=== PATIENT | male | born 1955 | race Caucasian/White ===

== ENCOUNTER → 2017-10-23 | Outpatient (CLI) | payer BC ==
--- NOTE | 2017-10-25 10:07 | MR ---
EXAMINATION TYPE: MR knee RT wo con DATE OF EXAM: 10/23/2017 COMPARISON: Outside right knee MRI report December 11, 2014 HISTORY: Right knee pain per order. Inner knee pain for 3 years with history of prior surgery per pat ient. TECHNIQUE: Multiplanar, multisequence images of the knee is performed without IV contrast. FINDINGS: MEDIAL MENISCUS: Anterior horn remains intact without tear. There is redemonstration of triangular sh aped increased signal posterior horn of medial meniscus does not extend to articular surface not sign ificantly changed from prior. Slight medial extrusion of medial meniscus is now present on coronal im ages LATERAL MENISCUS: Anterior and posterior horns are intact without tear. CRUCIATE LIGAMENTS: The posterior cruciate ligaments is intact and unremarkable. Anterior cruciate li gament shows thickening with wavy course and intermediate signal, this is more prominent versus prior . Some fibers remain attached at both proximal and distal attachments. COLLATERAL LIGAMENTS: The medial collateral ligament and lateral collateral ligament complex are inta ct and unremarkable. EXTENSOR MECHANISM: Visualized quadriceps and patellar tendons are intact. Ossific fragmentation from anterior tibial tuberosity could reflect product of old [place]-Schlatter type injury is unchanged fr om prior deep to the distal patellar tendon. EFFUSION: There is more prominent moderate to large suprapatellar joint effusion. POPLITEAL CYST: No popliteal/castro cyst. TRICOMPARTMENT SPACES: There is persistent mild to moderate tricompartment joint space loss most prom inent patellofemoral compartment with mild tricompartment joint space spurring. CARTILAGE: Some early fissuring or chondromalacia patella is seen along posterior patellar pole best on sagittal image 18, no full-thickness cartilaginous loss is present. Some thinning of articular car tilage medial tibiofemoral compartment is noted most prominent posteriorly. BONE MARROW SIGNAL: No focal abnormal marrow signal is appreciated. OTHER: Small ganglion cyst anterior to anterior horn right lateral meniscus is slightly larger. IMPRESSION: 1. 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 2. Moderate to large size suprapatellar joint effusion slightly more prominent versus prior. 3. Background of mild to moderate diffuse osteoarthritic changes redemonstrated without significant i nterval progression.
== END ==
LOC: RADMRIMAIN 07:58
PROVIDERS: ATTEND Orthopaedic Surgery
DX: M17.11 Unilateral primary osteoarthritis, right knee (principal)

== ENCOUNTER → 2018-03-17 | Outpatient (CLI) | payer BC ==
--- NOTE | 2018-03-17 07:51 | MR ---
EXAMINATION TYPE: MR knee LT wo con DATE OF EXAM: 03/17/2018 7:41 AM COMPARISON: NONE HISTORY: LEFT KNEE PAIN TECHNIQUE: Multiplanar, multiecho imaging of the left knee is performed without IV contrast. FINDINGS: There is a small joint effusion. There is grade III to IV chondromalacia involving the medial patellar facet. There is grade I to II c hondromalacia involving the weightbearing surface of the medial femoral condyle. There is pseudocystic changes at the origin of the lateral collateral ligament and also some pseudocy stic change or a small enchondroma involving the medial metaphysis of the distal femur. Both menisci appear intact. There is myxoid change within the anterior cruciate ligament. The posterior cruciate ligament appears normal. Both the medial and lateral collateral ligament complexes appear intact. No macro fracture is seen. T here is osseous edema involving the medial aspect of the medial femoral condyle. IMPRESSION: 1. CHONDROMALACIA DESCRIBED. 2. NO EVIDENCE OF A MENISCAL TEAR. 3. SMALL JOINT EFFUSION. 4. BENIGN-APPEARING LESION, MEDIAL FEMORAL CONDYLE. 5. PSEUDOCYSTIC CHANGE AT THE ORIGIN OF THE MEDIAL COLLATERAL LIGAMENT COMPLEX.
== END | disposition home or self-care (01) ==
LOC: RADMRIMAIN 07:04
PROVIDERS: ATTEND Orthopaedic Surgery
DX: M22.42 Chondromalacia patellae, left knee (principal); M25.462 Effusion, left knee; M25.862 Other specified joint disorders, left knee; R93.7 Abnormal findings on diagnostic imaging of other parts of musculoskeletal system

== ENCOUNTER → 2018-04-17 | Outpatient (CLI) | payer BC ==
[2018-04-17 11:32] LABS: Basophils % (A) 1 %; Eosinophils # (A) 0.1 k/uL (0-0.7); Eosinophils % (A) 2 %; HCT 45.3 % (39.0-53.0); HGB 14.5 gm/dL (13.0-17.5); Lymphocytes # (A) 1.5 k/uL (1.0-4.8); Lymphocytes % (A) 21 %; MCH 28.6 pg (25.0-35.0); MCV 89.6 fL (80.0-100.0); Mean Platelet Volume 6.5; Monocytes # (A) 0.4 k/uL (0-1.0); Monocytes % (A) 5 %; Neutrophils # (A) 4.9 k/uL (1.3-7.7); Neutrophils % (A) 69 %; Platelet Count 331 k/uL (150-450); RBC 5.06 m/uL (4.30-5.90); RDW 14.5 % (11.5-15.5); WBC 7.2 k/uL (3.8-10.6)
[2018-04-17 11:45] LABS: Potassium 4.8 mmol/L (3.5-5.1)
== END | disposition home or self-care (01) ==
LOC: LABPAT 10:56
PROVIDERS: ATTEND Orthopaedic Surgery
DX: Z01.818 Encounter for other preprocedural examination (principal); Z01.812 Encounter for preprocedural laboratory examination; M23.92 Unspecified internal derangement of left knee
CPT/HCPCS: 36415; 80051; 85025; 93005

== ENCOUNTER 2018-04-26 07:12 | Day surgery (SDC) | payer BC ==
[2018-04-17 15:46] VITALS: BMI 32.3
--- NOTE | 2018-04-25 20:37 | HP ---
HISTORY AND PHYSICAL REASON FOR ADMISSION: Surgery scheduled for 04/26/2018 HISTORY OF PRESENT ILLNESS: Saturnino Farris is a 62-year-old patient seen with progressive left knee pain. Treatment options were discussed with him. He elected to proceed with arthroscopy. Consent regarding procedure was obtained. PAST MEDICAL HISTORY: Azc-yoexbft-marqworca diabetes. PAST SURGICAL HISTORY: Right knee arthroscopy. MEDICATIONS: 1. . 2. Lyrica. 3. Ibuprofen. 4. Tramadol. ALLERGIES: None reported. SOCIAL HISTORY: Patient denies tobacco use. PHYSICAL EXAMINATION: Evaluation of the left knee range of motion is -3 to 120 degrees. There is a moderate effusion present. Tenderness along the medial joint line. Positive medial Beltran's. Ligaments are stable. Hip rotation without pain. Distal neurovascular exam intact. RADIOGRAPHS: Left knee radiographs revealed mild osteoarthritis. Left knee MRI revealed chondromalacia and intraarticular joint effusion. IMPRESSION: 1. Internal derangement, left knee with meniscal tear versus osteochondral tear. 2. Pit-ggrwadg-khzbzngol diabetes. PLAN: Left knee arthroscopy with partial meniscectomy versus chondroplasty and debridement. Surgery scheduled for 04/26/2018. MMODL / IJN: [id number] /
[~2018-04-26 07:12] MED LIST: LACTATED RINGERS 1,000 ML IV SCH; ONDANSETRON 4 MG/2 ML VIAL IVP PRN; ceFAZolin IN SWFI 2 GM/20 ML SYRINGE IVP ONE
[2018-04-26] MEDS ORDERED: LIDOCAINE 1% 20 ML VIAL (10MG/ML) FOR IV START INTRADERMA ONE (07:38)
[2018-04-26 08:01] LABS: Glucose,Whole Blood 143 mg/dL (75-99)
[2018-04-26 08:03] VITALS: RESP 16
[2018-04-26] MEDS ORDERED: ePHEDrine SULFATE/0.9% NACL/PF 50 MG/5 ML SYRINGE IV ONE (08:51)
[2018-04-26] MEDS ORDERED: fentaNYL (PF) 50 MCG/ML 2 ML AMP ONE (08:51)
[2018-04-26] MEDS ORDERED: MIDAZOLAM 2 MG/2 ML VIAL ONE (08:51)
[2018-04-26] MEDS ORDERED: KETOROLAC 30 MG/ML 1 ML VIAL ONE (08:51)
[2018-04-26] MEDS ORDERED: SUCCINYLCHOLINE CHLORIDE 100 MG/5 ML SYR IV ONE (08:51)
[2018-04-26] MEDS ORDERED: HYDROmorphone (PF) 1 MG/ML ONE (08:51)
[2018-04-26] MEDS ORDERED: LACTATED RINGERS 1,000 ML IV ONE (08:51)
[2018-04-26] MEDS ORDERED: LIDOCAINE 1% INJ 10MG/ML (20 ML MDV) ONE (08:51)
[2018-04-26] MEDS ORDERED: PROPOFOL 10 MG/ML 20 ML VIAL IV ONE (08:51)
[2018-04-26] MEDS ORDERED: BUPIVACAINE (PF) 0.25% 30 ML VIAL INTRAARTIC ONE (09:02)
--- NOTE | 2018-04-26 09:58 | P.OP ---
Date of Procedure: 04/26/18 Preoperative Diagnosis: Internal derangement left knee Postoperative Diagnosis: 1. Tear medial and lateral meniscus left knee 2. Grade 2 chondromalacia medial femoral condyle left knee 3. Grade 2 chondromalacia patella left knee 4. Reactive synovitis medial and suprapatellar compartments left knee Procedure(s) Performed: 1. Arthroscopic partial medial and lateral meniscectomy left knee 2. Arthroscopic chondroplasty medial femoral condyle left knee 3. Arthroscopic chondroplasty patella left knee 4. Arthroscopic partial synovectomy medial and suprapatellar compartments left knee Anesthesia: AKILAHA, local Surgeon: Rosendo Alford Estimated Blood Loss (ml): 8 Pathology: none sent Condition: stable Disposition: PACU Indications for Procedure: 62-year-old patient seen with progressive left knee pain. After treatment options were discussed, he elected to proceed with arthroscopy. Operative Findings: see description of procedure Description of Procedure: Patient was taken to the operative suite. Patient underwent a general anesthetic by the department of anesthesia. Patient was given preoperative antibiotics. The left lower extremity was placed in a well-padded arthroscopic leg lopez. The left leg was prepped and draped in the normal sterile orthopedic fashion. A lateral parapatellar and suprapatellar incision was made. Trochars were inserted. Arthroscopy was initiated. Suprapatellar pouch revealed diffuse thick reactive synovitis. The patellofemoral joint appeared to articulate congruently. There was grade 2 chondromalacia of the patella with osteochondral tears present. The scope was guided into the medial gutter. No loose bodies or plica were identified. The scope was then guided into the medial compartment. A medial parapatellar incision was made. Trocar inserted followed by probe. It was a complex tear involving the posterior horn of the medial meniscus. There were grade 2 chondromalacia changes of the medial femoral condyle with osteochondral tears present. There was reactive synovitis anteriorly. I performed a partial medial meniscectomy down to stable tissue. I performed a chondroplasty of the medial femoral condyle down to stable tissue followed by partial synovectomy. The residual meniscus and osteochondral surfaces were stable. There was good decompression of the synovitis. Scope and probe were then guided into the intercondylar notch. Cruciates were identified, probed and found to be stable. The scope and probe were then guided into lateral compartment. There was a radial tear mid body lateral meniscus. There was no chondromalacia present. There was no significant reactive synovitis present. I performed a partial lateral meniscectomy down to stable tissue. The residual meniscus was probed and found to be stable. The scope was in guided back into the suprapatellar compartment. I introduced a motorized shaver into the super compartment. I debrided some piecemeal fragments of meniscus I encountered. I performed a chondroplasty of the patella down to stable tissue. I performed a partial synovectomy. The shaver was removed. I took one more look around the entire knee, no residual debris. Instruments were now removed from the joint. The joint was infiltrated with .25 % Marcaine. Steri-Strips were applied to the portal sites. Sterile dressings were applied. The patient was placed into a TOSHIA hose. No tourniquet was utilized. The patient was awakened, transferred to a bed and taken to recovery stable satisfactory condition.
[2018-04-26] MEDS: HYDROmorphone 0.5 MG/0.5 ML SYRINGE IVP PRN ×2 (10:05→10:17)
[2018-04-26 10:10] VITALS: TEMP 98.6
[2018-04-26 10:32] LABS: Glucose,Whole Blood 128 mg/dL (75-99)
[2018-04-26 11:41] VITALS: BP 142/85; PULSE 81
== END 2018-04-26 12:17 | disposition home or self-care (01) ==
LOC: OR 07:12
PROVIDERS: ATTEND Orthopaedic Surgery
DX: S83.242A Other tear of medial meniscus, current injury, left knee, initial encounter (principal); S83.282A Other tear of lateral meniscus, current injury, left knee, initial encounter; X58.XXXA Exposure to other specified factors, initial encounter; M22.42 Chondromalacia patellae, left knee; M65.862 Other synovitis and tenosynovitis, left lower leg; E11.9 Type 2 diabetes mellitus without complications; Z79.84 Long term (current) use of oral hypoglycemic drugs; G47.33 Obstructive sleep apnea (adult) (pediatric); Z87.891 Personal history of nicotine dependence; K52.9 Noninfective gastroenteritis and colitis, unspecified; Z79.1 Long term (current) use of non-steroidal anti-inflammatories (NSAID); Z79.899 Other long term (current) drug therapy; Z79.891 Long term (current) use of opiate analgesic

== ENCOUNTER 2022-03-02 18:44 | Inpatient (IN) | payer BC ==
[2022-03-02 20:03] LABS: Glucose,Whole Blood 189 mg/dL (75-99)
--- NOTE | 2022-03-02 20:22 | ED ---
General Adult HPI - General Chief complaint: Nausea/Vomiting/Diarrhea Stated complaint: SOB/NVD Time Seen by Provider: 03/02/22 20:18 Source: patient, family Mode of arrival: ambulatory Limitations: no limitations - History of Present Illness Initial comments: Patient presents to the ED with his for evaluation. Patient states that he has had nausea and vomiting for the past 24 hours or so. He states that he has been unable to keep anything down, including his medications. He states that he is a diabetic, and he has been checking his blood glucose levels today. He states that he had a level of 190 earlier today. Patient also admits to feeling generally weak, having lower extremity muscle "cramps", and having a headache. Patient denies trauma or injury, sudden onset of headache, LOC, focal numbness/weakness/neuro deficit, visual changes, speech difficulty, neck pain or stiffness, fever, cough or cold symptoms, dyspnea, chest pain, palpitations, dizziness, abdominal pain, diarrhea or constipation, bloody or melanotic stool, hematemesis, dysuria/hematuria/urinary frequency/urinary symptoms, or any other symptoms or complaints. Patient denies known sick contact or recent travel abroad. Patient denies any unusual ingestions that he feels may have caused his symptoms. Patient states that he is fully vaccinated for Covid. - Related Data Home Medications Medication Instructions Recorded Confirmed Empagliflozin/Linagliptin 1 tab PO DAILY 04/17/18 03/02/22 [Glyxambi 25 mg-5 mg Tablet] Mesalamine [Lialda] 4.8 gm PO DAILY 04/17/18 03/02/22 Multivitamins, Thera [Multivitamin 1 tab PO DAILY 03/02/22 03/02/22 (formulary)] Pioglitazone [Actos] 45 mg PO DAILY 03/02/22 03/02/22 Semaglutide [Rybelsus] 7 mg PO DAILY 03/02/22 03/02/22 clonazePAM [KlonoPIN] 0.5 mg PO HS 03/02/22 03/02/22 Allergies Allergy/AdvReac Type Severity Reaction Status Date / Time No Known Allergies Allergy Verified 03/02/22 19:37 Review of Systems ROS Statement: Those systems with pertinent positive or pertinent negative responses have been documented in the HPI. ROS Other: All systems not noted in ROS Statement are negative. Past Medical History Past Medical History: Diabetes Mellitus Additional Past Medical History / Comment(s): ulcerative colitis History of Any Multi-Drug Resistant Organisms: None Reported Past Surgical History: No Surgical Hx Reported Additional Past Surgical History / Comment(s): knees Past Psychological History: No Psychological Hx Reported Smoking Status: Never smoker Past Alcohol Use History: None Reported, Occasional Past Drug Use History: Marijuana General Exam Limitations: no limitations General appearance: alert, in no apparent distress Head exam: Present: atraumatic, normocephalic Eye exam: Present: normal appearance, PERRL, EOMI ENT exam: Present: mucous membranes dry Neck exam: Present: other (No nuchal rigidity; trachea is in midline). Absent: tenderness, meningismus Respiratory exam: Present: normal lung sounds bilaterally. Absent: respiratory distress, wheezes, rales, rhonchi, stridor Cardiovascular Exam: Present: normal rhythm, tachycardia, normal heart sounds, other (Normal radial pulses bilaterally) GI/Abdominal exam: Present: soft, normal bowel sounds. Absent: distended, tenderness, guarding Extremities exam: Absent: pedal edema Neurological exam: Present: alert, oriented X3, CN II-XII intact. Absent: motor sensory deficit Psychiatric exam: Present: normal affect, normal mood Skin exam: Present: warm, dry, intact, normal color Course Vital Signs 03/02/22 19:30 Temperature 99.1 F Pulse Rate 103 H Respiratory 18 Rate Blood Pressure 142/74 O2 Sat by Pulse 98 Oximetry - Reevaluation(s) Reevaluation #1: 03/02/22 22:45 Case, H&P, test results thus far and ED management thus far were discussed with Dr. Meng (project management advisor). I explained to him my concern for euglycemic DKA, but he states that this would be very unusual, and he thinks that it is very unlikely given that the patient is not an insulin-dependent diabetic. He recommends ordering toxicological labs (salicylates, drug screen, toxic alcohols) and administrating sodium bicarbonate. He states that he does not feel that the patient needs to be admitted to the ICU, and he recommends medical floor admission to the medical service. He has no further recommendations at t his time. 03/02/22 22:56 Case, H&P, test results thus far, ED management thus far and my discussion with Dr. Meng as above were discussed with Dr. Abrams. He too is concerned that the patient's symptoms are from euglycemic DKA particularly given that the patient is on a SGLT2 inhibitor for management of his hyperglycemia. He recommends starting the patient on an insulin IV drip with a concomitant D5 IV drip. He accepts hospital floor admission. He does not recommend administration of sodium bicarbonate at this time. He has no further recommendations at this time. 03/02/22 23:30 Patient states that his nausea has improved with ED treatment, and he is now feeling better. Patient remains alert and breathing comfortably. Patient and are aware the patient's test results and my discussions as above. They both agree with hospital admission at this time. Medical Decision Making - Medical Decision Making Patient is a type II diabetic being treated with a SGLT2 inhibitor. Patient has an anion gap metabolic acidosis and is acetone positive. Patient's lactate and salicylate levels are within normal limits. Patient's toxic alcohol levels are still pending at this time. Patient denies any toxicological ingestion/overdos e. Given the above, I suspect that the patient likely has euglycemic DKA, and treatment has been initiated with a regular insulin IV drip and a D5 half-normal saline IV drip. Case was discussed with Dr. Abrams and he agrees with this plan. Dr. Abrams has accepted hospital admission. - Lab Data Result diagrams: 03/02/22 21:18 03/02/22 20:11 Lab Results 03/02/22 03/02/22 03/02/22 Range/Units 20:01 20:11 20:11 WBC 10.6 (3.8-10.6) k/uL RBC 5.03 (4.30-5.90) m/uL Hgb 14.8 (13.0-17.5) gm/dL Hct 49.8 (39.0-53.0) % MCV 99.1 (80.0-100.0) fL MCH 29.5 (25.0-35.0) pg MCHC 29.8 L (31.0-37.0) g/dL RDW 13.7 (11.5-15.5) % Plt Count 278 (150-450) k/uL MPV 7.6 Neutrophils % 84 % Lymphocytes % 6 % Monocytes % 7 % Eosinophils % 1 % Basophils % 0 % Neutrophils # 8.9 H (1.3-7.7) k/uL Lymphocytes # 0.6 L (1.0-4.8) k/uL Monocytes # 0.8 (0-1.0) k/uL Eosinophils # 0.1 (0-0.7) k/uL Basophils # 0.0 (0-0.2) k/uL Hypochromasia Marked VBG pH (7.31-7.41) VBG pCO2 (37-51) mmHg VBG HCO3 (24-28) mmol/L Sodium 137 (137-145) mmol/L Potassium 5.6 H (3.5-5.1) mmol/L Chloride 104 (98-107) mmol/L Carbon Dioxide <5 L* (22-30) mmol/L Anion Gap mmol/L BUN 19 (9-20) mg/dL Creatinine 1.23 (0.66-1.25) mg/dL Est GFR (CKD-EPI)AfAm 72 (>60 ml/min/1.73 sqM) Est GFR (CKD-EPI)NonAf 62 (>60 ml/min/1.73 sqM) Glucose 206 H (74-99) mg/dL POC Glucose (mg/dL) 189 H (75-99) mg/dL POC Glu Table Saw Operator ID Freddy, Marcell Plasma Lactic Acid Estevan (0.7-2.0) mmol/L Calcium 9.3 (8.4-10.2) mg/dL Magnesium (1.6-2.3) mg/dL Total Bilirubin 0.7 (0.2-1.3) mg/dL AST 28 (17-59) U/L ALT 24 (4-49) U/L Alkaline Phosphatase 75 (38-126) U/L Total Protein 8.4 H (6.3-8.2) g/dL Albumin 5.0 (3.5-5.0) g/dL Lipase (23-300) U/L Salicylates mg/dL Acetaminophen ug/mL Acetone, Qual (Negative) Coronavirus (PCR) (Not Detectd) 03/02/22 03/02/22 03/02/22 Range/Units 21:18 21:18 21:18 WBC 9.6 (3.8-10.6) k/uL RBC 4.84 (4.30-5.90) m/uL Hgb 15.0 (13.0-17.5) gm/dL Hct 48.1 (39.0-53.0) % MCV 99.5 (80.0-100.0) fL MCH 31.0 (25.0-35.0) pg MCHC 31.1 (31.0-37.0) g/dL RDW 14.2 (11.5-15.5) % Plt Count 300 (150-450) k/uL MPV 7.6 Neutrophils % 84 % Lymphocytes % 7 % Monocytes % 7 % Eosinophils % 0 % Basophils % 0 % Neutrophils # 8.1 H (1.3-7.7) k/uL Lymphocytes # 0.6 L (1.0-4.8) k/uL Monocytes # 0.7 (0-1.0) k/uL Eosinophils # 0.0 (0-0.7) k/uL Basophils # 0.0 (0-0.2) k/uL Hypochromasia Marked VBG pH 7.10 L* (7.31-7.41) VBG pCO2 28 L (37-51) mmHg VBG HCO3 8 L* (24-28) mmol/L Sodium (137-145) mmol/L Potassium (3.5-5.1) mmol/L Chloride (98-107) mmol/L Carbon Dioxide (22-30) mmol/L Anion Gap mmol/L BUN (9-20) mg/dL Creatinine (0.66-1.25) mg/dL Est GFR (CKD-EPI)AfAm (>60 ml/min/1.73 sqM) Est GFR (CKD-EPI)NonAf (>60 ml/min/1.73 sqM) Glucose (74-99) mg/dL POC Glucose (mg/dL) (75-99) mg/dL POC Glu Table Saw Operator ID Plasma Lactic Acid Estev[place] (0.7-2.0) mmol/L Calcium (8.4-10.2) mg/dL Magnesium 2.4 H (1.6-2.3) mg/dL Total Bilirubin (0.2-1.3) mg/dL AST (17-59) U/L ALT (4-49) U/L Alkaline Phosphatase (38-126) U/L Total Protein (6.3-8.2) g/dL Albumin (3.5-5.0) g/dL Lipase 29 (23-300) U/L Salicylates mg/dL Acetaminophen ug/mL Acetone, Qual Positive (Negative) Coronavirus (PCR) (Not Detectd) 03/02/22 03/02/22 03/02/22 Range/Units 21:25 22:13 22:37 WBC (3.8-10.6) k/uL RBC (4.30-5.90) m/uL Hgb (13.0-17.5) gm/dL Hct (39.0-53.0) % MCV (80.0-100.0) fL MCH (25.0-35.0) pg MCHC (31.0-37.0) g/dL RDW (11.5-15.5) % Plt Count (150-450) k/uL MPV Neutrophils % % Lymphocytes % % Monocytes % % Eosinophils % % Basophils % % Neutrophils # (1.3-7.7) k/uL Lymphocytes # (1.0-4.8) k/uL Monocytes # (0-1.0) k/uL Eosinophils # (0-0.7) k/uL Basophils # (0-0.2) k/uL Hypochromasia VBG pH (7.31-7.41) VBG pCO2 (37-51) mmHg VBG HCO3 (24-28) mmol/L Sodium (137-145) mmol/L Potassium (3.5-5.1) mmol/L Chloride (98-107) mmol/L Carbon Dioxide (22-30) mmol/L Anion Gap mmol/L BUN (9-20) mg/dL Creatinine (0.66-1.25) mg/dL Est GFR (CKD-EPI)AfAm (>60 ml/min/1.73 sqM) Est GFR (CKD-EPI)NonAf (>60 ml/min/1.73 sqM) Glucose (74-99) mg/dL POC Glucose (mg/dL) 189 H (75-99) mg/dL POC Glu Table Saw Operator ID Andrew [facility] Plasma Lactic Acid Estevan 1.0 (0.7-2.0) mmol/L Calcium (8.4-10.2) mg/dL Magnesium (1.6-2.3) mg/dL Total Bilirubin (0.2-1.3) mg/dL AST (17-59) U/L ALT (4-49) U/L Alkaline Phosphatase (38-126) U/L Total Protein (6.3-8.2) g/dL Albumin (3.5-5.0) g/dL Lipase (23-300) U/L Salicylates mg/dL Acetaminophen ug/mL Acetone, Qual (Negative) Coronavirus (PCR) Not Detected (Not Detectd) 03/02/22 Range/Units 22:45 WBC (3.8-10.6) k/uL RBC (4.30-5.90) m/uL Hgb (13.0-17.5) gm/dL Hct (39.0-53.0) % MCV (80.0-100.0) fL MCH (25.0-35.0) pg MCHC (31.0-37.0) g/dL RDW (11.5-15.5) % Plt Count (150-450) k/uL MPV Neutrophils % % Lymphocytes % % Monocytes % % Eosinophils % % Basophils % % Neutrophils # (1.3-7.7) k/uL Lymphocytes # (1.0-4.8) k/uL Monocytes # (0-1.0) k/uL Eosinophils # (0-0.7) k/uL Basophils # (0-0.2) k/uL Hypochromasia VBG pH (7.31-7.41) VBG pCO2 (37-51) mmHg VBG HCO3 (24-28) mmol/L Sodium (137-145) mmol/L Potassium (3.5-5.1) mmol/L Chloride (98-107) mmol/L Carbon Dioxide (22-30) mmol/L Anion Gap mmol/L BUN (9-20) mg/dL Creatinine (0.66-1.25) mg/dL Est GFR (CKD-EPI)AfAm (>60 ml/min/1.73 sqM) Est GFR (CKD-EPI)NonAf (>60 ml/min/1.73 sqM) Glucose (74-99) mg/dL POC Glucose (mg/dL) (75-99) mg/dL POC Glu Table Saw Operator ID Plasma Lactic Acid Estevan (0.7-2.0) mmol/L Calcium (8.4-10.2) mg/dL Magnesium (1.6-2.3) mg/dL Total Bilirubin (0.2-1.3) mg/dL AST (17-59) U/L ALT (4-49) U/L Alkaline Phosphatase (38-126) U/L Total Protein (6.3-8.2) g/dL Albumin (3.5-5.0) g/dL Lipase (23-300) U/L Salicylates <1.0 mg/dL Acetaminophen <10.0 ug/mL Acetone, Qual (Negative) Coronavirus (PCR) (Not Detectd) Critical Care Time Critical Care Time: Yes Total Critical Care Time: 40 Disposition Clinical Impression: Nausea and vomiting, Metabolic acidosis, Hyperglycemia Narrative: Suspected euglycemic diabetic ketoacidosis Disposition: ADMITTED IP TO THIS [facility] Condition: Stable Is patient prescribed a controlled substance at d/c from ED?: No Time of Disposition: 23:01
[2022-03-02 20:23] LABS: Basophils % (A) 0 %; Eosinophils # (A) 0.1 k/uL (0-0.7); Eosinophils % (A) 1 %; HCT 49.8 % (39.0-53.0); HGB 14.8 gm/dL (13.0-17.5); Hypochromasia Marked; Lymphocytes # (A) 0.6 k/uL (1.0-4.8); Lymphocytes % (A) 6 %; MCH 29.5 pg (25.0-35.0); MCHC 29.8 g/dL (31.0-37.0); MCV 99.1 fL (80.0-100.0); Mean Platelet Volume 7.6; Monocytes # (A) 0.8 k/uL (0-1.0); Monocytes % (A) 7 %; Neutrophils # (A) 8.9 k/uL (1.3-7.7); Neutrophils % (A) 84 %; Platelet Count 278 k/uL (150-450); RBC 5.03 m/uL (4.30-5.90); RDW 13.7 % (11.5-15.5); WBC 10.6 k/uL (3.8-10.6)
[2022-03-02] MEDS ORDERED: SODIUM CHLORIDE 0.9% 1,000 ML IV STA (20:26)
[2022-03-02] MEDS ORDERED: MORPHINE SULFATE 4 MG/ML SYRINGE IV STA (20:26)
[2022-03-02] MEDS ORDERED: ONDANSETRON 4 MG/2 ML VIAL IVP STA (20:26)
[2022-03-02 20:36] LABS: ALT 24 U/L (4-49); AST 28 U/L (17-59); African American GFR (CKD) 72 (>60 ml/min/1.73 sqM); Alkaline Phosphatase 75 U/L (38-126); Blood Urea Nitrogen 19 mg/dL (9-20); Calcium 9.3 mg/dL (8.4-10.2); Carbon Dioxide <5 mmol/L (22-30); Chloride 104 mmol/L (98-107); Glucose 206 mg/dL (74-99); Non-African American GFR(CKD) 62 (>60 ml/min/1.73 sqM); Potassium 5.6 mmol/L (3.5-5.1); Sodium 137 mmol/L (137-145); Total Bilirubin 0.7 mg/dL (0.2-1.3); Total Protein 8.4 g/dL (6.3-8.2)
[2022-03-02 21:31] LABS: Basophils % (A) 0 %; Eosinophils % (A) 0 %; HCT 48.1 % (39.0-53.0); Hypochromasia Marked; Lymphocytes # (A) 0.6 k/uL (1.0-4.8); Lymphocytes % (A) 7 %; MCHC 31.1 g/dL (31.0-37.0); MCV 99.5 fL (80.0-100.0); Mean Platelet Volume 7.6; Monocytes # (A) 0.7 k/uL (0-1.0); Monocytes % (A) 7 %; Neutrophils # (A) 8.1 k/uL (1.3-7.7); Neutrophils % (A) 84 %; Platelet Count 300 k/uL (150-450); RBC 4.84 m/uL (4.30-5.90); RDW 14.2 % (11.5-15.5); WBC 9.6 k/uL (3.8-10.6)
[2022-03-02 21:34] LABS: VBG PH 7.1 (7.31-7.41)
[2022-03-02 21:42] LABS: Lipase 29 U/L (23-300)
[2022-03-02 21:47] LABS: Magnesium 2.4 mg/dL (1.6-2.3)
[2022-03-02] MEDS ORDERED: SODIUM CHLORIDE 0.9% 1,000 ML IV ONE (22:31)
[2022-03-02 22:40] LABS: Glucose,Whole Blood 189 mg/dL (75-99)
[2022-03-02 23:03] LABS: Acetaminophen <10.0 ug/mL; Salicylate <1.0 mg/dL
[2022-03-02] MEDS ORDERED: DEXTROSE 5%-0.45% NACL 1,000 ML IV ONE (23:03)
[2022-03-02 23:22] LABS: Appearance,Urine Clear (Clear); Bilirubin,Urine Negative (Negative); Blood,Urine Trace (Negative); Color,Urine Light Yellow; Glucose,Urine (UA) 4+ (Negative); Leukocyte Esterase,Urine Negative (Negative); Mucus,Urine Rare /hpf; Nitrite,Urine Negative (Negative); Protein,Urine 1+ (Negative); RBC,Urine <1 /hpf (0-5); Specific Gravity,Urine 1.023 (1.001-1.035); Urobilinogen,Urine <2.0 mg/dL (<2.0); WBC,Urine 1 /hpf (0-5)
[2022-03-02 23:28] LABS: Ketones,Urine 4+ (Negative)
[2022-03-02 23:49] LABS: Amphetamine Screen,Urine Not Detected (NotDetected); Barbiturate Screen,Urine Not Detected (NotDetected); Benzodiazepines Screen,Urine Not Detected (NotDetected); Cocaine Screen,Urine Not Detected (NotDetected); Methadone Screen, Urine Not Detected (NotDetected); Opiate Screen,Urine Detected (NotDetected); Oxycodone Screen, Urine Not Detected (NotDetected); Phencyclidine Screen,Urine Not Detected (NotDetected); Tricyclic Antidepressant,Urine Not Detected (NotDetected); Urn Cannabinoid Scrn Not Detected (NotDetected)
[2022-03-03 00:50] LABS: Phosphorus 4.2 mg/dL (2.5-4.5); Potassium 4.9 mmol/L (3.5-5.1)
[2022-03-03] MEDS: INSULIN REGULAR 100 UNIT in SODIUM CHLORIDE 0.9% 100 ML IV SCH ×2 (01:35→15:36)
[2022-03-03] MEDS: clonazePAM 0.5 MG TAB PO SCH ×2 (01:36→21:43)
[2022-03-03 01:44] LABS: Glucose,Whole Blood 183 mg/dL (75-99)
[2022-03-03 03:20] LABS: Glucose,Whole Blood 113 mg/dL (75-99)
--- NOTE | 2022-03-03 03:49 | P.HPIM ---
History of Present Illness H&P Date: 03/02/22 Chief Complaint: generalized weakness, nausea vomiting 66 year old male with T2DM patient presenting with 1 days history of progressive weakness, nausea and vomtiing, increase urination , no diarrhea, no infection like symptoms, no fever, no chills, no dysuria or hematuria , no chest pain , no trouble breathing, no cough. however, his does report that he was breathing in a strange way and was becoming lethargic. he recently lost his mother yesterday, and has been exceptionally stressed. he is otherwise compliant with his medications blood work in the ED , showed severe acidosis and large anion gap, acetones were positive, toxicology profile negative, patient suspected to have euglycemic DKA as he is on SGLT2 inhibitor which is recognized to cause euglycemic DKA in T2DM. patient was updated and started on DKA pathway, with insulin drip and IV D5+saline, with frequent electrolyte and renal function checks. case discussed with ICU for admission , however ICU attending recommended floor admission at this point patient clinically was improving with above measures. no other complaint at this time . he has been on SGLT2 inhibitor glyxemba for about 3 years now Review of Systems Pertinent positives as noted in HPI. All other systems were reviewed and are negative Past Medical History Past Medical History: Diabetes Mellitus Additional Past Medical History / Comment(s): ulcerative colitis History of Any Multi-Drug Resistant Organisms: None Reported Past Surgical History: No Surgical Hx Reported Additional Past Surgical History / Comment(s): knees Past Psychological History: No Psychological Hx Reported Smoking Status: Never smoker Past Alcohol Use History: None Reported, Occasional Past Drug Use History: Marijuana - Past Family History family Family Medical History: No Reported History Medications and Allergies Home Medications Medication Instructions Recorded Confirmed Type Empagliflozin/Linagliptin 1 tab PO DAILY 04/17/18 03/02/22 History [Glyxambi 25 mg-5 mg Tablet] Mesalamine [Lialda] 4.8 gm PO DAILY 04/17/18 03/02/22 History Multivitamins, Thera [Multivitamin 1 tab PO DAILY 03/02/22 03/02/22 History (formulary)] Pioglitazone [Actos] 45 mg PO DAILY 03/02/22 03/02/22 History Semaglutide [Rybelsus] 7 mg PO DAILY 03/02/22 03/02/22 History clonazePAM [KlonoPIN] 0.5 mg PO HS 03/02/22 03/02/22 History Allergies Allergy/AdvReac Type Severity Reaction Status Date / Time No Known Allergies Allergy Verified 03/02/22 19:37 Physical Exam Vitals: Vital Signs Temp Pulse Resp BP Pulse Ox 03/03/22 03:01 93 18 102/53 99 03/03/22 00:30 96 20 124/74 99 03/02/22 23:30 99 20 122/66 99 03/02/22 22:30 97 119/64 99 03/02/22 21:30 96 20 142/70 99 03/02/22 19:30 99.1 F 103 H 18 142/74 98 Intake and Output 03/02/22 03/02/22 03/03/22 14:59 22:59 06:59 Intake Total 16.071 Output Total 1500 Balance -1483.929 Intake: Intake, IV Titration 16.071 Amount Insulin Regular 100 unit 16.071 In Sodium Chloride 0.9% 100 ml @ 0.1 UNITS/KG/HR 9.941 mls/hr IV .[id number] [facility] Rx#:[id number] Output: Urine 1500 Other: Weight 98.43 kg Constitutional: No acute distress, conversant, pleasant Eyes: Anicteric sclerae, moist conjunctiva, Pupils equal round reactive to light ENMT: NC/AT Oropharynx clear, no erythema, or exudates Neck: Supple, no masses, or JVD No carotid bruits No thyromegaly Lungs: Clear to auscultation Clear to percussion Normal respiratory effort, no accessory muscle use Cardiovascular: Heart regular in rate and rhythm, No murmurs, gallops, or rubs No peripheral edema Abdominal: Soft Nontender, no guarding, rebound or rigidity Abdomen moving with respiration Normoactive bowel sounds No hepatomegaly, No splenomegaly No palpable mass No abdominal wall hernia noted Skin: Normal temperature, tone, texture, turgor No induration No subcutaneous nodules No rash, lesions No ulcers Extremities: No digital cyanosis No clubbing Pedal pulses intact and symmetrical Radial pulses intact and symmetrical No calf tenderness Psychiatric: Alert and oriented to person, place and time Appropriate affect fair judgement Neuro Muscles Strength 4/5 in all 4 extremities Sensation to light touch grossly present throughout Cranial nerves II-XII grossly intact No focal sensory deficits Lymphatics: no palpable cervical or supraclavicular , or inguinal lymph nodes Results CBC & Chem 7: 03/02/22 21:18 03/03/22 00:11 Labs: Abnormal Lab Results - Last 24 Hours (Table) 03/02/22 03/02/22 03/02/22 Range/Units 20:01 20:11 20:11 MCHC 29.8 L (31.0-37.0) g/dL Neutrophils # 8.9 H (1.3-7.7) k/uL Lymphocytes # 0.6 L (1.0-4.8) k/uL VBG pH (7.31-7.41) VBG pCO2 (37-51) mmHg VBG HCO3 (24-28) mmol/L Sodium (137-145) mmol/L Potassium 5.6 H (3.5-5.1) mmol/L Carbon Dioxide <5 L* (22-30) mmol/L Glucose 206 H (74-99) mg/dL POC Glucose (mg/dL) 189 H (75-99) mg/dL Osmolality (280-301) mosm/kg Magnesium (1.6-2.3) mg/dL Total Protein 8.4 H (6.3-8.2) g/dL Urine Protein (Negative) Urine Glucose (UA) (Negative) Urine Ketones (Negative) Urine Blood (Negative) Urine Mucus (None) /hpf Urine Opiates Screen (NotDetected) 03/02/22 03/02/22 03/02/22 Range/Units 21:18 21:18 21:18 MCHC (31.0-37.0) g/dL Neutrophils # 8.1 H (1.3-7.7) k/uL Lymphocytes # 0.6 L (1.0-4.8) k/uL VBG pH 7.10 L* (7.31-7.41) VBG pCO2 28 L (37-51) mmHg VBG HCO3 8 L* (24-28) mmol/L Sodium (137-145) mmol/L Potassium (3.5-5.1) mmol/L Carbon Dioxide (22-30) mmol/L Glucose (74-99) mg/dL POC Glucose (mg/dL) (75-99) mg/dL Osmolality (280-301) mosm/kg Magnesium 2.4 H (1.6-2.3) mg/dL Total Protein (6.3-8.2) g/dL Urine Protein (Negative) Urine Glucose (UA) (Negative) Urine Ketones (Negative) Urine Blood (Negative) Urine Mucus (None) /hpf Urine Opiates Screen (NotDetected) 03/02/22 03/02/22 03/02/22 Range/Units 22:37 22:45 23:07 MCHC (31.0-37.0) g/dL Neutrophils # (1.3-7.7) k/uL Lymphocytes # (1.0-4.8) k/uL VBG pH (7.31-7.41) VBG pCO2 (37-51) mmHg VBG HCO3 (24-28) mmol/L Sodium (137-145) mmol/L Potassium (3.5-5.1) mmol/L Carbon Dioxide (22-30) mmol/L Glucose (74-99) mg/dL POC Glucose (mg/dL) 189 H (75-99) mg/dL Osmolality 310 H (280-301) mosm/kg Magnesium (1.6-2.3) mg/dL Total Protein (6.3-8.2) g/dL Urine Protein 1+ H (Negative) Urine Glucose (UA) 4+ H (Negative) Urine Ketones 4+ H (Negative) Urine Blood Trace H (Negative) Urine Mucus Rare H (None) /hpf Urine Opiates Screen (NotDetected) 03/02/22 03/03/22 03/03/22 Range/Units 23:07 00:11 01:33 MCHC (31.0-37.0) g/dL Neutrophils # (1.3-7.7) k/uL Lymphocytes # (1.0-4.8) k/uL VBG pH (7.31-7.41) VBG pCO2 (37-51) mmHg VBG HCO3 (24-28) mmol/L Sodium 135 L (137-145) mmol/L Potassium (3.5-5.1) mmol/L Carbon Dioxide 6 L* (22-30) mmol/L Glucose 180 H (74-99) mg/dL POC Glucose (mg/dL) 183 H (75-99) mg/dL Osmolality (280-301) mosm/kg Magnesium (1.6-2.3) mg/dL Total Protein (6.3-8.2) g/dL Urine Protein (Negative) Urine Glucose (UA) (Negative) Urine Ketones (Negative) Urine Blood (Negative) Urine Mucus (None) /hpf Urine Opiates Screen Detected H (NotDetected) 03/03/22 Range/Units 03:06 MCHC (31.0-37.0) g/dL Neutrophils # (1.3-7.7) k/uL Lymphocytes # (1.0-4.8) k/uL VBG pH (7.31-7.41) VBG pCO2 (37-51) mmHg VBG HCO3 (24-28) mmol/L Sodium (137-145) mmol/L Potassium (3.5-5.1) mmol/L Carbon Dioxide (22-30) mmol/L Glucose (74-99) mg/dL POC Glucose (mg/dL) 113 H (75-99) mg/dL Osmolality (280-301) mosm/kg Magnesium (1.6-2.3) mg/dL Total Protein (6.3-8.2) g/dL Urine Protein (Negative) Urine Glucose (UA) (Negative) Urine Ketones (Negative) Urine Blood (Negative) Urine Mucus (None) /hpf Urine Opiates Screen (NotDetected) Assessment and Plan Assessment: euglycemic DKA 2/2 SGLT2 inhibitor in T2DM follow DKA pathway initiated on insulin drip and D5 with saline frequent renal function and electrolyte check q2-4 hours q1hr blood sugar hold oral hypoglycemic agents monitor vital signs neuro checks fall precautions check a1c no infectious like symptoms UA , not indicative of UTI FULL CODE hepairn sc tid for DVT PPX anticipated length of stay > 2 midnights
[2022-03-03 04:44] LABS: African American GFR (CKD) >90 (>60 ml/min/1.73 sqM); Anion Gap 20 mmol/L; Blood Urea Nitrogen 18 mg/dL (9-20); Chloride 106 mmol/L (98-107); Glucose 97 mg/dL (74-99); Non-African American GFR(CKD) >90 (>60 ml/min/1.73 sqM); Phosphorus 2.7 mg/dL (2.5-4.5); Potassium 3.9 mmol/L (3.5-5.1); Sodium 134 mmol/L (137-145)
[2022-03-03 04:49] LABS: Glucose,Whole Blood 94 mg/dL (75-99)
[2022-03-03 04:59] LABS: Carbon Dioxide 8 mmol/L (22-30)
[2022-03-03 05:09] LABS: Glucose,Whole Blood 91 mg/dL (75-99)
[2022-03-03 06:31] LABS: Glucose,Whole Blood 100 mg/dL (75-99)
[2022-03-03 08:14] LABS: Glucose,Whole Blood 116 mg/dL (75-99)
[2022-03-03 09:51] LABS: Glucose,Whole Blood 133 mg/dL (75-99)
--- NOTE | 2022-03-03 10:41 | P.PN ---
Subjective Patient was examined at bedside today denies any resting shortness of breath, chest pain or palpitations. He does have some intractable nausea. He is unfortunately very upset because he was instructed by someone that he would be leaving today. Unfortunately his mother did pass away and her is tomorrow. His vital signs including CBC and BMP with ABG was explained in detail by myself. I've encouraged him not to leave AGAINST MEDICAL ADVICE due to immediate risk of decompensation including . Patient was also evaluated by the acquisition manager is recommending the patient to be monitored in the ICU for DKA protocol. This is also unexplained by the acquisition manager just prior to my visit. Objective - Vital Signs Vital signs: Vital Signs Temp 98.6 F 03/03/22 04:35 Pulse 87 03/03/22 06:39 Resp 16 03/03/22 06:39 BP 112/57 03/03/22 06:39 Pulse Ox 96 03/03/22 04:35 Intake & Output 03/02/22 03/03/22 03/03/22 18:59 06:59 18:59 Intake Total 22.782 3.645 Output Total 1999 Balance -1976.218 3.645 Weight 98.43 kg Intake: Intake, IV Titration 22.782 3.645 Amount Insulin Regular 100 unit 22.782 3.645 In Sodium Chloride 0.9% 100 ml @ 0.1 UNITS/KG/HR 9.941 mls/hr IV .[id number] [facility] Rx#:[id number] Output: Urine 1999 - Exam Gen. patient is awake alert oriented 3 frustrated Respiratory no wheezing or rhonchi appreciated Cardio normal S1/S2 heard Extremity no pitting edema noted Abdomen soft, nontender positive bowel sounds - Labs CBC & Chem 7: 03/02/22 21:18 03/03/22 04:00 Labs: Abnormal Lab Results - Last 24 Hours (Table) 03/02/22 03/02/22 03/02/22 Range/Units 20:01 20:11 20:11 MCHC 29.8 L (31.0-37.0) g/dL Neutrophils # 8.9 H (1.3-7.7) k/uL Lymphocytes # 0.6 L (1.0-4.8) k/uL VBG pH (7.31-7.41) VBG pCO2 (37-51) mmHg VBG HCO3 (24-28) mmol/L Sodium (137-145) mmol/L Potassium 5.6 H (3.5-5.1) mmol/L Carbon Dioxide <5 L* (22-30) mmol/L Glucose 206 H (74-99) mg/dL POC Glucose (mg/dL) 189 H (75-99) mg/dL Osmolality (280-301) mosm/kg Magnesium (1.6-2.3) mg/dL Total Protein 8.4 H (6.3-8.2) g/dL Urine Protein (Negative) Urine Glucose (UA) (Negative) Urine Ketones (Negative) Urine Blood (Negative) Urine Mucus (None) /hpf Urine Opiates Screen (NotDetected) 03/02/22 03/02/22 03/02/22 Range/Units 21:18 21:18 21:18 MCHC (31.0-37.0) g/dL Neutrophils # 8.1 H (1.3-7.7) k/uL Lymphocytes # 0.6 L (1.0-4.8) k/uL VBG pH 7.10 L* (7.31-7.41) VBG pCO2 28 L (37-51) mmHg VBG HCO3 8 L* (24-28) mmol/L Sodium (137-145) mmol/L Potassium (3.5-5.1) mmol/L Carbon Dioxide (22-30) mmol/L Glucose (74-99) mg/dL POC Glucose (mg/dL) (75-99) mg/dL Osmolality (280-301) mosm/kg Magnesium 2.4 H (1.6-2.3) mg/dL Total Protein (6.3-8.2) g/dL Urine Protein (Negative) Urine Glucose (UA) (Negative) Urine Ketones (Negative) Urine Blood (Negative) Urine Mucus (None) /hpf Urine Opiates Screen (NotDetected) 03/02/22 03/02/22 03/02/22 Range/Units 22:37 22:45 23:07 MCHC (31.0-37.0) g/dL Neutrophils # (1.3-7.7) k/uL Lymphocytes # (1.0-4.8) k/uL VBG pH (7.31-7.41) VBG pCO2 (37-51) mmHg VBG HCO3 (24-28) mmol/L Sodium (137-145) mmol/L Potassium (3.5-5.1) mmol/L Carbon Dioxide (22-30) mmol/L Glucose (74-99) mg/dL POC Glucose (mg/dL) 189 H (75-99) mg/dL Osmolality 310 H (280-301) mosm/kg Magnesium (1.6-2.3) mg/dL Total Protein (6.3-8.2) g/dL Urine Protein 1+ H (Negative) Urine Glucose (UA) 4+ H (Negative) Urine Ketones 4+ H (Negative) Urine Blood Trace H (Negative) Urine Mucus Rare H (None) /hpf Urine Opiates Screen (NotDetected) 03/02/22 03/03/22 03/03/22 Range/Units 23:07 00:11 01:33 MCHC (31.0-37.0) g/dL Neutrophils # (1.3-7.7) k/uL Lymphocytes # (1.0-4.8) k/uL VBG pH (7.31-7.41) VBG pCO2 (37-51) mmHg VBG HCO3 (24-28) mmol/L Sodium 135 L (137-145) mmol/L Potassium (3.5-5.1) mmol/L Carbon Dioxide 6 L* (22-30) mmol/L Glucose 180 H (74-99) mg/dL POC Glucose (mg/dL) 183 H (75-99) mg/dL Osmolality (280-301) mosm/kg Magnesium (1.6-2.3) mg/dL Total Protein (6.3-8.2) g/dL Urine Protein (Negative) Urine Glucose (UA) (Negative) Urine Ketones (Negative) Urine Blood (Negative) Urine Mucus (None) /hpf Urine Opiates Screen Detected H (NotDetected) 03/03/22 03/03/22 03/03/22 Range/Units 03:06 04:00 06:28 MCHC (31.0-37.0) g/dL Neutrophils # (1.3-7.7) k/uL Lymphocytes # (1.0-4.8) k/uL VBG pH (7.31-7.41) VBG pCO2 (37-51) mmHg VBG HCO3 (24-28) mmol/L Sodium 134 L (137-145) mmol/L Potassium (3.5-5.1) mmol/L Carbon Dioxide 8 L* (22-30) mmol/L Glucose (74-99) mg/dL POC Glucose (mg/dL) 113 H 100 H (75-99) mg/dL Osmolality (280-301) mosm/kg Magnesium (1.6-2.3) mg/dL Total Protein (6.3-8.2) g/dL Urine Protein (Negative) Urine Glucose (UA) (Negative) Urine Ketones (Negative) Urine Blood (Negative) Urine Mucus (None) /hpf Urine Opiates Screen (NotDetected) 03/03/22 03/03/22 Range/Units 08:03 09:49 MCHC (31.0-37.0) g/dL Neutrophils # (1.3-7.7) k/uL Lymphocytes # (1.0-4.8) k/uL VBG pH (7.31-7.41) VBG pCO2 (37-51) mmHg VBG HCO3 (24-28) mmol/L Sodium (137-145) mmol/L Potassium (3.5-5.1) mmol/L Carbon Dioxide (22-30) mmol/L Glucose (74-99) mg/dL POC Glucose (mg/dL) 116 H 133 H (75-99) mg/dL Osmolality (280-301) mosm/kg Magnesium (1.6-2.3) mg/dL Total Protein (6.3-8.2) g/dL Urine Protein (Negative) Urine Glucose (UA) (Negative) Urine Ketones (Negative) Urine Blood (Negative) Urine Mucus (None) /hpf Urine Opiates Screen (NotDetected) Assessment and Plan Assessment: Assessment: #1 euglycemic DKA secondary to SCL 2 inhibitors #2 diabetes mellitus [id number] Plan: -Admit patient to ICU for close monitoring -Continue DKA protocol, insulin drip -Monitor BMP every 2 hours until anion gap closed -The ABG reviewed patient is acidotic 7.10, bicarb 8 -We'll obtain lipid panel patient should also be on a statin on discharge -Discontinue use of SGLT2 inhibitor on discharge -Obtain hemoglobin A1c and lipid panel -DVT prophylaxis heparin 3 times a day
--- NOTE | 2022-03-03 11:06 | P.CNPUL ---
History of Present Illness Consult date: 03/03/22 Requesting physician: Mike Sprague Reason for consult: other (Critical care management) Chief complaint: Nausea, vomiting History of present illness: This is a 66-year-old male patient with a known history of diabetes mellitus, ulcerative colitis, marijuana use. He is currently on Rybelsus, Actos, Glyxambi. He presented to the emergency room last evening with complaints of nausea and vomiting for the past 24 hours. He states he vomited about 15 time in 6 hours. He was having generalized weakness, lower extremity cramps and headache. He was found to have significant metabolic acidosis with a bicarb level less than 5. Presenting blood sugar was 206. White count 9.6. Hemoglobin 15.0. Sodium 137. Potassium 5.6. BUN 19. Creatinine 1.23. He received 2 L of fluid resuscitation. He was initiated on D5.45 normal saline at 50 MLS per hour. Started on an insulin drip. He is seen today in the emergency department. Currently resting fairly comfortably on a stretcher. He has not vomited since his arrival. He is still feeling weak. Review of Systems REVIEW OF SYSTEMS: CONSTITUTIONAL: Denies any recent significant weight loss or weight gain. EYES: Denies change in vision. EARS, NOSE, MOUTH, THROAT: Denies headaches, denies sore throat. CARDIOVASCULAR: Denies chest pain, palpitations or syncopal episodes. RESPIRATORY: Denies shortness of breath, cough, congestion or hemoptysis. GASTROINTESTINAL: Positive for nausea, vomiting, abdominal discomfort GENITOURINARY: Denies hematuria, denies infections. MUSKULOSKELETAL: Denies pain, denies swelling. INTEGUMENTARY: Denies rash, denies eczema. NEUROLOGICAL: Denies recent memory loss, no recent seizure activity. PSYCHIATRIC: Denies anxiety, denies depression. HEMATOLOGIC/LYMPHATIC: Denies anemia, denies enlarged lymph nodes. Past Medical History Past Medical History: Diabetes Mellitus Additional Past Medical History / Comment(s): ulcerative colitis History of Any Multi-Drug Resistant Organisms: None Reported Past Surgical History: No Surgical Hx Reported Additional Past Surgical History / Comment(s): knees Past Psychological History: No Psychological Hx Reported Smoking Status: Never smoker Past Alcohol Use History: None Reported, Occasional Past Drug Use History: Marijuana - Past Family History family Family Medical History: No Reported History Medications and Allergies Home Medications Medication Instructions Recorded Confirmed Type Empagliflozin/Linagliptin 1 tab PO DAILY 04/17/18 03/02/22 History [Glyxambi 25 mg-5 mg Tablet] Mesalamine [Lialda] 4.8 gm PO DAILY 04/17/18 03/02/22 History Multivitamins, Thera [Multivitamin 1 tab PO DAILY 03/02/22 03/02/22 History (formulary)] Pioglitazone [Actos] 45 mg PO DAILY 03/02/22 03/02/22 History Semaglutide [Rybelsus] 7 mg PO DAILY 03/02/22 03/02/22 History clonazePAM [KlonoPIN] 0.5 mg PO HS 03/02/22 03/02/22 History Allergies Allergy/AdvReac Type Severity Reaction Status Date / Time No Known Allergies Allergy Verified 03/02/22 19:37 Physical Exam Vitals: Vital Signs Temp Pulse Resp BP Pulse Ox 03/03/22 06:39 87 16 112/57 03/03/22 04:35 98.6 F 85 15 103/54 96 03/03/22 03:01 93 18 102/53 99 03/03/22 00:30 96 20 124/74 99 03/02/22 23:30 99 20 122/66 99 03/02/22 22:30 97 119/64 99 03/02/22 21:30 96 20 142/70 99 03/02/22 19:30 99.1 F 103 H 18 142/74 98 Intake and Output 03/02/22 03/03/22 03/03/22 22:59 06:59 14:59 Intake Total .782 3.645 Output Total 1999 Balance -1976.218 3.645 Intake: Intake, IV Titration 22.782 3.645 Amount Insulin Regular 100 unit 22.782 3.645 In Sodium Chloride 0.9% 100 ml @ 0.1 UNITS/KG/HR 9.941 mls/hr IV .[id number] [facility] Rx#:[id number] Output: Urine 1999 Other: Weight 98.43 kg GENERAL EXAM: Alert, 66-year-old male patient, on room air, comfortable in no a pparent distress. HEAD: Normocephalic. EYES: Normal reaction of pupils, equal size. NOSE: Clear with pink turbinates. THROAT: No erythema or exudates. NECK: No masses, no JVD. CHEST: No chest wall deformity. LUNGS: Equal air entry with no crackles, wheeze, rhonchi or dullness. CVS: S1 and S2 normal with no audible murmur, regular rhythm. ABDOMEN: No hepatosplenomegaly, normal bowel sounds, no guarding or rigidity. SPINE: No scoliosis or deformity SKIN: No rashes CENTRAL NERVOUS SYSTEM: No focal deficits, tone is normal in all 4 extremities. EXTREMITIES: There is no peripheral edema. No clubbing, no cyanosis. Peripheral pulses are intact. Results - Laboratory Findings CBC and BMP: 03/02/22 21:18 03/03/22 10:48 Abnormal lab findings: Abnormal Labs 03/02/22 03/02/22 03/02/22 20:01 20:11 20:11 MCHC 29.8 L Neutrophils # 8.9 H Lymphocytes # 0.6 L VBG pH VBG pCO2 VBG HCO3 Sodium Potassium 5.6 H Carbon Dioxide <5 L* Glucose 206 H POC Glucose (mg/dL) 189 H Osmolality Magnesium Total Protein 8.4 H Urine Protein Urine Glucose (UA) Urine Ketones Urine Blood Urine Mucus Urine Opiates Screen 03/02/22 03/02/22 03/02/22 21:18 21:18 21:18 MCHC Neutrophils # 8.1 H Lymphocytes # 0.6 L VBG pH 7.10 L* VBG pCO2 28 L VBG HCO3 8 L* Sodium Potassium Carbon Dioxide Glucose POC Glucose (mg/dL) Osmolality Magnesium 2.4 H Total Protein Urine Protein Urine Glucose (UA) Urine Ketones Urine Blood Urine Mucus Urine Opiates Screen 03/02/22 03/02/22 03/02/22 22:37 22:45 23:07 MCHC Neutrophils # Lymphocytes # VBG pH VBG pCO2 VBG HCO3 Sodium Potassium Carbon Dioxide Glucose POC Glucose (mg/dL) 189 H Osmolality 310 H Magnesium Total Protein Urine Protein 1+ H Urine Glucose (UA) 4+ H Urine Ketones 4+ H Urine Blood Trace H Urine Mucus Rare H Urine Opiates Screen 03/02/22 03/03/22 03/03/22 23:07 00:11 01:33 MCHC Neutrophils # Lymphocytes # VBG pH VBG pCO2 VBG HCO3 Sodium 135 L Potassium Carbon Dioxide 6 L* Glucose 180 H POC Glucose (mg/dL) 183 H Osmolality Magnesium Total Protein Urine Protein Urine Glucose (UA) Urine Ketones Urine Blood Urine Mucus Urine Opiates Screen Detected H 03/03/22 03/03/22 03/03/22 03:06 04:00 06:28 MCHC Neutrophils # Lymphocytes # VBG pH VBG pCO2 VBG HCO3 Sodium 134 L Potassium Carbon Dioxide 8 L* Glucose POC Glucose (mg/dL) 113 H 100 H Osmolality Magnesium Total Protein Urine Protein Urine Glucose (UA) Urine Ketones Urine Blood Urine Mucus Urine Opiates Screen 03/03/22 03/03/22 08:03 09:49 MCHC Neutrophils # Lymphocytes # VBG pH VBG pCO2 VBG HCO3 Sodium Potassium Carbon Dioxide Glucose POC Glucose (mg/dL) 116 H 133 H Osmolality Magnesium Total Protein Urine Protein Urine Glucose (UA) Urine Ketones Urine Blood Urine Mucus Urine Opiates Screen Assessment and Plan Assessment: 1 Acute anion gap metabolic acidosis secondary to diabetes , poor sugar control, possibly a normoglycemic DKA as the patient is on various oral hypoglycemic medications with possibly suboptimal control his blood sugars. The patient presented with severe acidosis with a serum bicarb of less than 5. The patient had a anion gap that was above 30. No exogenous alcohols. Urine drug screen was essentially negative. No salicylates. Positive acetone. No other drug intake. Alcohol level was also less than 10. The patient resuscitated IV fluids, bicarb infusion and low rate insulin drip was also provided to control his blood sugars. 2 Diabetes mellitus for approximate 4-5 years. 3 Diabetic neuropathy 4 History of colitis, currently inactive in stable 5 Grieving process. The patient's mother recently passed and her is tomorrow and he is quite adamant about going home. Plan: The patient was seen and evaluated in the emergency department. He wanted to go home to attend the of his mother. I think stop possibly this point/that the patient was quite acidotic. At the time of my evaluation the emergency, the patient serum bicarb was up to 8 and I suggested moving this patient ICU for ongoing bicarb management and treatment of acidosis and DKA and insulin drip if needed. He may be potentially go home within 24 hours once his acidosis fully corrected. He was made aware of that. Labs reviewed Continue fluid resuscitation Titrate the insulin drip as tolerated Admit to the intensive care unit Continue to monitor labs closely We will continue to follow and make further recommendations based on his clinical status Is a split shared evaluation that was done along with a nurse practitioner. This evaluation was done and more than 30 minutes. I was involved in more than 50% of the decision-making and the assessment and evaluation. I had a lengthy discussion with the patient and I convinced him to stay at least for another 24 hours still his metabolic acidosis is adequately corrected. He'll be admitted to the ICU for now. We'll continue to follow. Time with Patient: Greater than 30
[2022-03-03 11:16] LABS: Glucose,Whole Blood 126 mg/dL (75-99)
[2022-03-03 11:40] LABS: African American GFR (CKD) >90 (>60 ml/min/1.73 sqM); Anion Gap 14 mmol/L; Blood Urea Nitrogen 14 mg/dL (9-20); Calcium 8.5 mg/dL (8.4-10.2); Carbon Dioxide 16 mmol/L (22-30); Chloride 104 mmol/L (98-107); Glucose 127 mg/dL (74-99); Non-African American GFR(CKD) >90 (>60 ml/min/1.73 sqM); Potassium 4.7 mmol/L (3.5-5.1); Sodium 134 mmol/L (137-145)
[2022-03-03] MEDS ORDERED: ACETAMINOPHEN TAB 500 MG TAB PO STA (12:01)
[2022-03-03] MEDS: HEPARIN SODIUM,PORCINE/PF 5,000 UNIT/0.5 ML SYRINGE SQ SCH ×2 (12:06→16:41)
[2022-03-03] MEDS: BALSALAZIDE DISODIUM 750 MG CAPSULE PO SCH ×3 (12:06→21:48)
[2022-03-03 14:22] LABS: Glucose,Whole Blood 145 mg/dL (75-99)
[2022-03-03 14:59] LABS: Chol/HDL Ratio 5.03 Ratio; LDL Cholesterol,Calculated 201.5 mg/dL (0.0-131.0)
[2022-03-03 15:00] VITALS: BMI 29.4
[2022-03-03 16:39] LABS: Glucose,Whole Blood 121 mg/dL (75-99)
[2022-03-03 18:14] LABS: Glucose,Whole Blood 117 mg/dL (75-99)
[2022-03-03 19:46] LABS: African American GFR (CKD) >90 (>60 ml/min/1.73 sqM); Anion Gap 14 mmol/L; Blood Urea Nitrogen 10 mg/dL (9-20); Calcium 8.3 mg/dL (8.4-10.2); Carbon Dioxide 15 mmol/L (22-30); Chloride 107 mmol/L (98-107); Glucose 125 mg/dL (74-99); Non-African American GFR(CKD) >90 (>60 ml/min/1.73 sqM); Potassium 3.9 mmol/L (3.5-5.1); Sodium 136 mmol/L (137-145)
[2022-03-03 19:47] LABS: Glucose,Whole Blood 121 mg/dL (75-99)
[2022-03-03] MEDS ORDERED: LORazepam 2 MG/ML INJ IV PRN ×3 (21:33)
[2022-03-03 21:44] LABS: Glucose,Whole Blood 155 mg/dL (75-99)
[2022-03-03] MEDS: DEXTROSE 5% IN WATER 1,000 ML with SODIUM BICARB (1 MEQ/ML) 150 ML IV SCH (21:59)
[2022-03-03 23:42] LABS: Glucose,Whole Blood 137 mg/dL (75-99)
[2022-03-04] MEDS: HEPARIN SODIUM,PORCINE/PF 5,000 UNIT/0.5 ML SYRINGE SQ SCH ×4 (01:20→23:41)
[2022-03-04 01:21] LABS: Glucose,Whole Blood 145 mg/dL (75-99)
[2022-03-04 02:31] LABS: African American GFR (CKD) >90 (>60 ml/min/1.73 sqM); Anion Gap 15 mmol/L; Blood Urea Nitrogen 9 mg/dL (9-20); Calcium 8.5 mg/dL (8.4-10.2); Carbon Dioxide 15 mmol/L (22-30); Chloride 105 mmol/L (98-107); Glucose 134 mg/dL (74-99); Non-African American GFR(CKD) >90 (>60 ml/min/1.73 sqM); Potassium 3.7 mmol/L (3.5-5.1); Sodium 135 mmol/L (137-145)
[2022-03-04] MEDS ORDERED: POTASSIUM CHLORIDE ER 20 MEQ TAB.ER PO SCH (03:00)
[2022-03-04 03:13] LABS: Glucose,Whole Blood 119 mg/dL (75-99)
[2022-03-04 04:58] LABS: Glucose,Whole Blood 127 mg/dL (75-99)
[2022-03-04 06:26] LABS: Glucose,Whole Blood 125 mg/dL (75-99)
[2022-03-04 08:17] LABS: Glucose,Whole Blood 194 mg/dL (75-99)
[2022-03-04] MEDS: BALSALAZIDE DISODIUM 750 MG CAPSULE PO SCH ×3 (08:18→21:32)
[2022-03-04 08:25] LABS: ALT 37 U/L (4-49); AST 39 U/L (17-59); African American GFR (CKD) >90 (>60 ml/min/1.73 sqM); Anion Gap 19 mmol/L; Blood Urea Nitrogen 7 mg/dL (9-20); Calcium 8.8 mg/dL (8.4-10.2); Carbon Dioxide 16 mmol/L (22-30); Chloride 102 mmol/L (98-107); Glucose 144 mg/dL (74-99); Magnesium 2.1 mg/dL (1.6-2.3); Non-African American GFR(CKD) >90 (>60 ml/min/1.73 sqM); Phosphorus 1.7 mg/dL (2.5-4.5); Sodium 137 mmol/L (137-145)
[2022-03-04] MEDS: DEXTROSE 5% IN WATER 1,000 ML with SODIUM BICARB (1 MEQ/ML) 150 ML IV SCH (09:28)
[2022-03-04 09:50] LABS: African American GFR (CKD) >90 (>60 ml/min/1.73 sqM); Anion Gap 16 mmol/L; Blood Urea Nitrogen 7 mg/dL (9-20); Calcium 8.4 mg/dL (8.4-10.2); Carbon Dioxide 16 mmol/L (22-30); Chloride 102 mmol/L (98-107); Glucose 237 mg/dL (74-99); Non-African American GFR(CKD) >90 (>60 ml/min/1.73 sqM); Potassium 3.7 mmol/L (3.5-5.1); Sodium 134 mmol/L (137-145)
[2022-03-04] MEDS ORDERED: SODIUM BICARB 8.4% 50 ML SYR (1 MEQ/ML) IV STA (09:57)
[2022-03-04 10:06] LABS: Glucose,Whole Blood 204 mg/dL (75-99)
[2022-03-04 11:56] LABS: Glucose,Whole Blood 222 mg/dL (75-99)
--- NOTE | 2022-03-04 13:32 | P.PN ---
Subjective Progress Note Date: 03/04/22 On today's evaluation of 03/04/2022, the patient is improved awake and alert and oriented and he feels much better compared to yesterday. No significant fatigue. No tiredness. No agitation. Noted the patient was kept on a bicarb infusion throughout the night and the patient was also getting insulin drip. This morning, the patient is on a bicarb infusion at the rate of 100 mL an hour and the patient is also on insulin drip at 0.25 units an hour. His most recent blood work shows a serum bicarb of 16 with an anion gap of 19. Noted the patient's hemoglobin A1c is at 11.2. Obviously, this is a drug induced DKA, euglycemic, induced by Glyxambi. Nevertheless, the patient seems to be poorly controlled in terms of blood sugar as the patient's hemoglobin A1c was above 11. The plan is to switch this patient to long-acting insulin. No nausea. No vomiting. No emesis. No chest pain. He was feeling weak and is improved considerably. Objective - Vital Signs Vital signs: Vital Signs Temp 98.8 F 03/04/22 12:00 Pulse 98 03/04/22 12:00 Resp 24 03/04/22 12:00 BP 158/86 03/04/22 12:00 Pulse Ox 98 03/04/22 12:00 Intake & Output 03/03/22 03/04/22 03/04/22 18:59 06:59 18:59 Intake Total 9170.321 0546.962 1300 Output Total 1050 1400 1000 Balance 296.833 -354.038 300 Weight 98.43 kg Intake: IV 360 1040 700 Dextrose 5% in Water 1, 1000 700 000 ml @ 150 mls/hr IV . Q7H40M FLORENCIO with Sodium Bicarb (1 Meq/ml) 150 ml Rx#:[id number] Dextrose 5%-0.45% NaCl 1, 300 000 ml @ 150 mls/hr IV . Q6H40M ONE Rx#:[id number] Normal Saline @ 20mL/hr 60 40 Intake, IV Titration 6.833 5.962 Amount Insulin Regular 100 unit 6.833 5.962 In Sodium Chloride 0.9% 100 ml @ 0.1 UNITS/KG/HR 9.941 mls/hr IV .[id number] FLORENCIO Rx#:[id number] Oral 980 600 Output: Urine 1050 1400 1000 Other: Voiding Method Toilet Toilet Urinal Urinal Urinal - Exam The patient appeared well nourished and normally developed. Vital signs as documented. Head exam is unremarkable. No scleral icterus or corneal arcus noted. Neck is without jugular venous distension, thyromegaly, or carotid bruits. Carotid upstrokes are brisk bilaterally. Lungs are clear to auscultation and percussion. Cardiac exam reveals the PMI to be normally sized and situated. Rhythm is regular. First and second heart sounds normal. No murmurs, rubs or gallops. Abdominal exam reveals normal bowel sounds, no masses, no organomegaly and no aortic enlargement. Extremities are nonedematous and both femoral and pedal pulses are normal.Examination of the skin revealed no evidence of significant rashes, suspicious appearing nevi or other concerning lesions.Neurologically, the patient is awake and alert and the patient does not have any focal neurological deficit. Cranial nerves are essentially intact. - Labs CBC & Chem 7: 03/02/22 21:18 03/04/22 09:27 Labs: Abnormal Lab Results - Last 24 Hours (Table) 03/03/22 03/03/22 03/03/22 Range/Units 10:48 10:48 14:20 Sodium (137-145) mmol/L Carbon Dioxide (22-30) mmol/L BUN (9-20) mg/dL Glucose (74-99) mg/dL POC Glucose (mg/dL) 145 H (75-99) mg/dL Hemoglobin A1c 11.2 H (0.0-6.0) % Calcium (8.4-10.2) mg/dL Phosphorus (2.5-4.5) mg/dL Cholesterol 283.00 H (0.00-200.00) mg/dL LDL Cholesterol, Calc 201.5 H (0.0-131.0) mg/dL 03/03/22 03/03/22 03/03/22 Range/Units 16:37 18:12 19:21 Sodium 136 L (137-145) mmol/L Carbon Dioxide 15 L (22-30) mmol/L BUN (9-20) mg/dL Glucose 125 H (74-99) mg/dL POC Glucose (mg/dL) 121 H 117 H (75-99) mg/dL Hemoglobin A1c (0.0-6.0) % Calcium 8.3 L (8.4-10.2) mg/dL Phosphorus (2.5-4.5) mg/dL Cholesterol (0.00-200.00) mg/dL LDL Cholesterol, Calc (0.0-131.0) mg/dL 03/03/22 03/03/22 03/03/22 Range/Units 19:45 21:43 23:39 Sodium (137-145) mmol/L Carbon Dioxide (22-30) mmol/L BUN (9-20) mg/dL Glucose (74-99) mg/dL POC Glucose (mg/dL) 121 H 155 H 137 H (75-99) mg/dL Hemoglobin A1c (0.0-6.0) % Calcium (8.4-10.2) mg/dL Phosphorus (2.5-4.5) mg/dL Cholesterol (0.00-200.00) mg/dL LDL Cholesterol, Calc (0.0-131.0) mg/dL 03/04/22 03/04/22 03/04/22 Range/Units 01:19 01:42 03:11 Sodium 135 L (137-145) mmol/L Carbon Dioxide 15 L (22-30) mmol/L BUN (9-20) mg/dL Glucose 134 H (74-99) mg/dL POC Glucose (mg/dL) 145 H 119 H (75-99) mg/dL Hemoglobin A1c (0.0-6.0) % Calcium (8.4-10.2) mg/dL Phosphorus (2.5-4.5) mg/dL Cholesterol (0.00-200.00) mg/dL LDL Cholesterol, Calc (0.0-131.0) mg/dL 03/04/22 03/04/22 03/04/22 Range/Units 04:57 06:25 07:09 Sodium (137-145) mmol/L Carbon Dioxide 16 L (22-30) mmol/L BUN 7 L (9-20) mg/dL Glucose 144 H (74-99) mg/dL POC Glucose (mg/dL) 127 H 125 H (75-99) mg/dL Hemoglobin A1c (0.0-6.0) % Calcium (8.4-10.2) mg/dL Phosphorus 1.7 L (2.5-4.5) mg/dL Cholesterol (0.00-200.00) mg/dL LDL Cholesterol, Calc (0.0-131.0) mg/dL 03/04/22 03/04/22 03/04/22 Range/Units 08:16 09:27 10:04 Sodium 134 L (137-145) mmol/L Carbon Dioxide 16 L (22-30) mmol/L BUN 7 L (9-20) mg/dL Glucose 237 H (74-99) mg/dL POC Glucose (mg/dL) 194 H 204 H (75-99) mg/dL Hemoglobin A1c (0.0-6.0) % Calcium (8.4-10.2) mg/dL Phosphorus (2.5-4.5) mg/dL Cholesterol (0.00-200.00) mg/dL LDL Cholesterol, Calc (0.0-131.0) mg/dL 03/04/22 Range/Units 11:54 Sodium (137-145) mmol/L Carbon Dioxide (22-30) mmol/L BUN (9-20) mg/dL Glucose (74-99) mg/dL POC Glucose (mg/dL) 222 H (75-99) mg/dL Hemoglobin A1c (0.0-6.0) % Calcium (8.4-10.2) mg/dL Phosphorus (2.5-4.5) mg/dL Cholesterol (0.00-200.00) mg/dL LDL Cholesterol, Calc (0.0-131.0) mg/dL Assessment and Plan Assessment: 1 Acute anion gap metabolic acidosis secondary to diabetes , poor sugar control, possibly a normoglycemic DKA as the patient is on various oral hypoglycemic medications with possibly suboptimal control his blood sugars. Clinically the patient is improving. Anion gap is also improved. Serum bicarb is at 16. The patient's remains on low rate insulin drip at 0.25 units an hour in addition to her bicarb infusion. 2 Diabetes mellitus for approximate 4-5 years. The patient is a poorly controlled on 3 different oral hypoglycemic medications and the patient HbA1c is at 11.2 and the patient needs to be on long-acting insulin. 3 Diabetic neuropathy 4 History of colitis, currently inactive in stable 5 Grieving process. The patient's mother recently passed and her is tomorrow and he is quite adamant about going home. Plan: Keep the patient on a bicarb infusion for another 12-24 hours still the bicarb level is above 20 and anion gap is closed Continue the insulin drip Discussed the case with the medical team and the patient will be switched to long-acting insulin once the gap is closed Continue to monitor labs closely We will continue to follow and make further recommendations based on his clinical status Case was discussed with the patient was agreeable. Case was also discussed with the medical team.
[2022-03-04 13:33] LABS: African American GFR (CKD) >90 (>60 ml/min/1.73 sqM); Anion Gap 17 mmol/L; Blood Urea Nitrogen 8 mg/dL (9-20); Calcium 8.9 mg/dL (8.4-10.2); Carbon Dioxide 23 mmol/L (22-30); Chloride 98 mmol/L (98-107); Glucose 192 mg/dL (74-99); Non-African American GFR(CKD) >90 (>60 ml/min/1.73 sqM); Potassium 3.7 mmol/L (3.5-5.1); Sodium 138 mmol/L (137-145)
--- NOTE | 2022-03-04 13:57 | P.PN ---
Subjective Patient was examined at bedside today not complaining of any new symptomatology. He is unfortunately frustrated because he wants to be discharged as his pulse funerals tomorrow. 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 Objective - Vital Signs Vital signs: Vital Signs Temp 98.8 F 03/04/22 12:00 Pulse 98 03/04/22 12:00 Resp 24 03/04/22 12:00 BP 158/86 03/04/22 12:00 Pulse Ox 98 03/04/22 12:00 Intake & Output 03/03/22 03/04/22 03/04/22 18:59 06:59 18:59 Intake Total 2916.812 9582.962 1300 Output Total 1050 1400 1000 Balance 296.833 -354.038 300 Weight 98.43 kg Intake: IV 360 1040 700 Dextrose 5% in Water 1, 1000 700 000 ml @ 150 mls/hr IV . Q7H40M FLORENCIO with Sodium Bicarb (1 Meq/ml) 150 ml Rx#:[id number] Dextrose 5%-0.45% NaCl 1, 300 000 ml @ 150 mls/hr IV . Q6H40M ONE Rx#:[id number] Normal Saline @ 20mL/hr 60 40 Intake, IV Titration 6.833 5.962 Amount Insulin Regular 100 unit 6.833 5.962 In Sodium Chloride 0.9% 100 ml @ 0.1 UNITS/KG/HR 9.941 mls/hr IV .[id number] FLORENCIO Rx#:[id number] Oral 980 600 Output: Urine 1050 1400 1000 Other: Voiding Method Toilet Toilet Urinal Urinal Urinal - Exam Gen. patient is awake alert oriented 3 frustrated Respiratory no wheezing or rhonchi appreciated Cardio normal S1/S2 heard Extremity no pitting edema noted Abdomen soft, nontender positive bowel sounds - Labs CBC & Chem 7: 03/02/22 21:18 03/04/22 12:17 Labs: Abnormal Lab Results - Last 24 Hours (Table) 03/03/22 03/03/22 03/03/22 Range/Units 10:48 10:48 14:20 Sodium (137-145) mmol/L Carbon Dioxide (22-30) mmol/L BUN (9-20) mg/dL Glucose (74-99) mg/dL POC Glucose (mg/dL) 145 H (75-99) mg/dL Hemoglobin A1c 11.2 H (0.0-6.0) % Calcium (8.4-10.2) mg/dL Phosphorus (2.5-4.5) mg/dL Cholesterol 283.00 H (0.00-200.00) mg/dL LDL Cholesterol, Calc 201.5 H (0.0-131.0) mg/dL 03/03/22 03/03/22 03/03/22 Range/Units 16:37 18:12 19:21 Sodium 136 L (137-145) mmol/L Carbon Dioxide 15 L (22-30) mmol/L BUN (9-20) mg/dL Glucose 125 H (74-99) mg/dL POC Glucose (mg/dL) 121 H 117 H (75-99) mg/dL Hemoglobin A1c (0.0-6.0) % Calcium 8.3 L (8.4-10.2) mg/dL Phosphorus (2.5-4.5) mg/dL Cholesterol (0.00-200.00) mg/dL LDL Cholesterol, Calc (0.0-131.0) mg/dL 03/03/22 03/03/22 03/03/22 Range/Units 19:45 21:43 23:39 Sodium (137-145) mmol/L Carbon Dioxide (22-30) mmol/L BUN (9-20) mg/dL Glucose (74-99) mg/dL POC Glucose (mg/dL) 121 H 155 H 137 H (75-99) mg/dL Hemoglobin A1c (0.0-6.0) % Calcium (8.4-10.2) mg/dL Phosphorus (2.5-4.5) mg/dL Cholesterol (0.00-200.00) mg/dL LDL Cholesterol, Calc (0.0-131.0) mg/dL 03/04/22 03/04/22 03/04/22 Range/Units 01:19 01:42 03:11 Sodium 135 L (137-145) mmol/L Carbon Dioxide 15 L (22-30) mmol/L BUN (9-20) mg/dL Glucose 134 H (74-99) mg/dL POC Glucose (mg/dL) 145 H 119 H (75-99) mg/dL Hemoglobin A1c (0.0-6.0) % Calcium (8.4-10.2) mg/dL Phosphorus (2.5-4.5) mg/dL Cholesterol (0.00-200.00) mg/dL LDL Cholesterol, Calc (0.0-131.0) mg/dL 03/04/22 03/04/22 03/04/22 Range/Units 04:57 06:25 07:09 Sodium (137-145) mmol/L Carbon Dioxide 16 L (22-30) mmol/L BUN 7 L (9-20) mg/dL Glucose 144 H (74-99) mg/dL POC Glucose (mg/dL) 127 H 125 H (75-99) mg/dL Hemoglobin A1c (0.0-6.0) % Calcium (8.4-10.2) mg/dL Phosphorus 1.7 L (2.5-4.5) mg/dL Cholesterol (0.00-200.00) mg/dL LDL Cholesterol, Calc (0.0-131.0) mg/dL 03/04/22 03/04/22 03/04/22 Range/Units 08:16 09:27 10:04 Sodium 134 L (137-145) mmol/L Carbon Dioxide 16 L (22-30) mmol/L BUN 7 L (9-20) mg/dL Glucose 237 H (74-99) mg/dL POC Glucose (mg/dL) 194 H 204 H (75-99) mg/dL Hemoglobin A1c (0.0-6.0) % Calcium (8.4-10.2) mg/dL Phosphorus (2.5-4.5) mg/dL Cholesterol (0.00-200.00) mg/dL LDL Cholesterol, Calc (0.0-131.0) mg/dL 03/04/22 03/04/22 Range/Units 11:54 12:17 Sodium (137-145) mmol/L Carbon Dioxide (22-30) mmol/L BUN 8 L (9-20) mg/dL Glucose 192 H (74-99) mg/dL POC Glucose (mg/dL) 222 H (75-99) mg/dL Hemoglobin A1c (0.0-6.0) % Calcium (8.4-10.2) mg/dL Phosphorus (2.5-4.5) mg/dL Cholesterol (0.00-200.00) mg/dL LDL Cholesterol, Calc (0.0-131.0) mg/dL Assessment and Plan Assessment: Assessment: #1 euglycemic DKA secondary to SCL 2 inhibitors #2 diabetes mellitus [id number] #3 hyperlipidemia Plan: -Admit patient to ICU for close monitoring -Continue DKA protocol, insulin drip -Recommend continuing patient with normal saline 150 mL with potassium D5. -Patient bicarb is greater than 15 recommend discontinuing use of IV bicarbonate -We'll obtain C-peptide to evaluate patient's insulin reserve -Hemoglobin A1c elevated at 11.2. -We'll transition over to subcutaneous insulin with Levemir and short-acting insulin once anion gap closes.. We'll start off with 5 units Levemir twice a day and short-acting. -Patient will need outpatient follow-up with endocrinology -We'll obtain lipid panel patient should also be on a statin on discharge - start patient on Lipitor 40 mg daily. -Discontinue use of SGLT2 inhibitor on discharge -DVT prophylaxis heparin 3 times a day
[2022-03-04] MEDS: POTASSIUM CHLORIDE IV SCH ×4 (14:41→21:27)
[2022-03-04] MEDS: NACL IV SCH ×4 (14:41→21:27)
[2022-03-04] MEDS: DEXTROSE IV SCH ×4 (14:41→21:27)
[2022-03-04 14:46] LABS: Glucose,Whole Blood 244 mg/dL (75-99)
[2022-03-04 16:14] LABS: Glucose,Whole Blood 239 mg/dL (75-99)
[2022-03-04] MEDS: INSULIN REGULAR 100 UNIT in SODIUM CHLORIDE 0.9% 100 ML IV SCH ×2 (17:29→17:30)
[2022-03-04 18:03] LABS: Glucose,Whole Blood 273 mg/dL (75-99)
[2022-03-04 18:25] LABS: African American GFR (CKD) >90 (>60 ml/min/1.73 sqM); Anion Gap 14 mmol/L; Blood Urea Nitrogen 10 mg/dL (9-20); Calcium 8.2 mg/dL (8.4-10.2); Carbon Dioxide 23 mmol/L (22-30); Chloride 98 mmol/L (98-107); Glucose 253 mg/dL (74-99); Non-African American GFR(CKD) >90 (>60 ml/min/1.73 sqM); Potassium 3.7 mmol/L (3.5-5.1); Sodium 135 mmol/L (137-145)
[2022-03-04 19:50] LABS: Glucose,Whole Blood 240 mg/dL (75-99)
[2022-03-04 20:23] LABS: African American GFR (CKD) >90 (>60 ml/min/1.73 sqM); Anion Gap 8 mmol/L; Blood Urea Nitrogen 11 mg/dL (9-20); Calcium 8.5 mg/dL (8.4-10.2); Carbon Dioxide 27 mmol/L (22-30); Chloride 99 mmol/L (98-107); Glucose 257 mg/dL (74-99); Non-African American GFR(CKD) >90 (>60 ml/min/1.73 sqM); Potassium 3.7 mmol/L (3.5-5.1); Sodium 134 mmol/L (137-145)
[2022-03-04] MEDS: clonazePAM 0.5 MG TAB PO SCH (21:31)
[2022-03-04] MEDS: INSULIN DETEMIR (LEVEMIR) 100 UNIT/ML SYR SQ SCH (21:32)
[2022-03-05 00:04] LABS: Glucose,Whole Blood 151 mg/dL (75-99)
[2022-03-05 02:41] LABS: C-Peptide 1.78 ng/mL (0.81-3.85)
[2022-03-05 06:54] LABS: Glucose,Whole Blood 138 mg/dL (75-99)
[2022-03-05] MEDS: INSULIN ASPART (NovoLOG) 100 UNIT/ML VIAL SQ SCH ×2 (06:54→12:03)
[2022-03-05 07:11] LABS: African American GFR (CKD) >90 (>60 ml/min/1.73 sqM); Anion Gap 8 mmol/L; Blood Urea Nitrogen 8 mg/dL (9-20); Calcium 8.5 mg/dL (8.4-10.2); Carbon Dioxide 29 mmol/L (22-30); Chloride 102 mmol/L (98-107); Glucose 141 mg/dL (74-99); Non-African American GFR(CKD) >90 (>60 ml/min/1.73 sqM); Phosphorus 2.9 mg/dL (2.5-4.5); Potassium 3.5 mmol/L (3.5-5.1); Sodium 139 mmol/L (137-145)
[2022-03-05] MEDS: HEPARIN SODIUM,PORCINE/PF 5,000 UNIT/0.5 ML SYRINGE SQ SCH (08:48)
[2022-03-05] MEDS: BALSALAZIDE DISODIUM 750 MG CAPSULE PO SCH (08:48)
[2022-03-05] MEDS: INSULIN DETEMIR (LEVEMIR) 100 UNIT/ML SYR SQ SCH (08:50)
[2022-03-05 08:55] VITALS: TEMP 98.1
[2022-03-05] MEDS ORDERED: ATORVASTATIN 40 MG TAB PO SCH (09:00)
[2022-03-05 11:50] LABS: Glucose,Whole Blood 234 mg/dL (75-99)
--- NOTE | 2022-03-05 12:08 | P.PN ---
Subjective Progress Note Date: 03/05/22 On today's evaluation of 03/04/2022, the patient is improved awake and alert and oriented and he feels much better compared to yesterday. No significant fatigue. No tiredness. No agitation. Noted the patient was kept on a bicarb infusion throughout the night and the patient was also getting insulin drip. This morning, the patient is on a bicarb infusion at the rate of 100 mL an hour and the patient is also on insulin drip at 0.25 units an hour. His most recent blood work shows a serum bicarb of 16 with an anion gap of 19. Noted the patient's hemoglobin A1c is at 11.2. Obviously, this is a drug induced DKA, euglycemic, induced by Glyxambi. Nevertheless, the patient seems to be poorly controlled in terms of blood sugar as the patient's hemoglobin A1c was above 11. The plan is to switch this patient to long-acting insulin. No nausea. No vomiting. No emesis. No chest pain. He was feeling weak and is improved considerably. 03/05/2022, the patient is doing extremely well. The serum bicarbs at 29. Blood sugars under adequate control and the patient has been switched to Levemir insulin and the rest of the oral hypoglycemics have been discontinued. He has no specific complaints. Raises are being made to discharge this patient home. I made recommendations for this patient to be followed up by endocrinology. Note that his LDL level was also elevated and the patient was placed on statins. Objective - Vital Signs Vital signs: Vital Signs Temp 98.1 F 03/05/22 08:00 Pulse 85 03/05/22 08:00 Resp 16 03/05/22 08:00 BP 121/68 03/05/22 08:00 Pulse Ox 94 L 03/05/22 08:00 Intake & Output 03/04/22 03/05/22 03/05/22 18:59 06:59 18:59 Intake Total 2553.704 506.792 0 Output Total 1700 500 351 Balance 853.704 6.792 -351 Weight 102.5 kg Intake: IV 1600 500 0 Dextrose 5% in Water 1, 1450 000 ml @ 150 mls/hr IV . Q7H40M FLORENCIO with Sodium Bicarb (1 Meq/ml) 150 ml Rx#:[id number] Dextrose 5%-0.9% NaCl 1, 150 300 000 ml @ 150 mls/hr IV . Q7H20M FLORENCIO with Potassium Chloride 10 meq Rx#: [id number] Normal Saline @ 20mL/hr 200 0 Intake, IV Titration 153.704 6.792 Amount Dextrose 5%-0.9% NaCl 1, 150 000 ml @ 150 mls/hr IV . Q7H20M FLORENCIO with Potassium Chloride 10 meq Rx#: [id number] Insulin Regular 100 unit 3.704 6.792 In Sodium Chloride 0.9% 100 ml @ 0.1 UNITS/KG/HR 9.941 mls/hr IV .[id number] FLORENCIO Rx#:[id number] Oral 800 Output: Urine 1700 500 350 Stool 1 Other: Voiding Method Urinal Urinal Urinal # Voids 1 1 1 # Bowel Movements 1 - Exam The patient appeared well nourished and normally developed. Vital signs as documented. Head exam is unremarkable. No scleral icterus or corneal arcus noted. Neck is without jugular venous distension, thyromegaly, or carotid bruits. Carotid upstrokes are brisk bilaterally. Lungs are clear to auscultation and percussion. Cardiac exam reveals the PMI to be normally sized and situated. Rhythm is regular. First and second heart sounds normal. No murmurs, rubs or gallops. Abdominal exam reveals normal bowel sounds, no masses, no organomegaly and no aortic enlargement. Extremities are nonedematous and both femoral and pedal pulses are normal.Examination of the skin revealed no evidence of significant rashes, suspicious appearing nevi or other concerning lesions.Neurologically, the patient is awake and alert and the patient does not have any focal neurological deficit. Cranial nerves are essentially intact. - Labs CBC & Chem 7: 03/02/22 21:18 03/05/22 05:35 Labs: Abnormal Lab Results - Last 24 Hours (Table) 03/04/22 03/04/22 03/04/22 Range/Units 12:17 14:44 16:13 Sodium (137-145) mmol/L BUN 8 L (9-20) mg/dL Creatinine (0.66-1.25) mg/dL Glucose 192 H (74-99) mg/dL POC Glucose (mg/dL) 244 H 239 H (75-99) mg/dL Calcium (8.4-10.2) mg/dL 03/04/22 03/04/22 03/04/22 Range/Units 17:30 18:02 19:46 Sodium 135 L 134 L (137-145) mmol/L BUN (9-20) mg/dL Creatinine (0.66-1.25) mg/dL Glucose 253 H 257 H (74-99) mg/dL POC Glucose (mg/dL) 273 H (75-99) mg/dL Calcium 8.2 L (8.4-10.2) mg/dL 03/04/22 03/05/22 03/05/22 Range/Units 19:48 00:02 05:35 Sodium (137-145) mmol/L BUN 8 L (9-20) mg/dL Creatinine 0.64 L (0.66-1.25) mg/dL Glucose 141 H (74-99) mg/dL POC Glucose (mg/dL) 240 H 151 H (75-99) mg/dL Calcium (8.4-10.2) mg/dL 03/05/22 03/05/22 Range/Units 06:52 11:49 Sodium (137-145) mmol/L BUN (9-20) mg/dL Creatinine (0.66-1.25) mg/dL Glucose (74-99) mg/dL POC Glucose (mg/dL) 138 H 234 H (75-99) mg/dL Calcium (8.4-10.2) mg/dL Assessment and Plan Assessment: 1 Acute anion gap metabolic acidosis secondary to diabetes , poor sugar control, possibly a normoglycemic DKA as the patient is on various oral hypoglycemic medications with possibly suboptimal control his blood sugars. Clinically the patient back to normal. Anion gap metabolic acidosis recovered. Serum bicarb is normal. The patient is currently off oral hypoglycemic medications. 2 Diabetes mellitus for approximate 4-5 years. The patient is a poorly controlled on 3 different oral hypoglycemic medications and the patient HbA1c is at 11.2 and the patient needs to be on long-acting insulin. 3 Diabetic neuropathy 4 History of colitis, currently inactive in stable 5 Grieving process. The patient's mother recently passed and her is tomorrow and he is quite adamant about going home. Plan: The patient will be discharged home on Levemir insulin in addition to sliding scale NovoLog Follow-up with endocrinology Agree on Lipitor Discharge home today
[2022-03-05 13:05] VITALS: BP 127/78; PULSE 92; RESP 29
--- NOTE | 2022-03-05 17:14 | P.DS ---
Providers Date of admission: 03/02/22 23:01 Expected date of discharge: 03/05/22 Attending physician: Mayco Abrams MD Consults: 03/03/22 07:53 Consult Physician Stat Consulting Provider: Delma Meng Consult Reason/Comments: SGLT2 - DKA Do you want consulting provider notified?: Yes Primary care physician: Gerard Ramirez MD Hospital Course: 66 year old male with T2DM, ulcerative colitis Patient presenting with 1 days history of progressive weakness, nausea and vomtiing, increase urination , no diarrhea, no infection like symptoms, no fever, no chills, no dysuria or hematuria , no chest pain , no trouble breathing, no cough. However, his does report that he was breathing in a strange way and was becoming lethargic. He recently lost his mother yesterday, and has been exceptionally stressed. he is otherwise compliant with his medications Blood work in the ED, showed severe acidosis and large anion gap, acetones were positive, toxicology profile negative, patient suspected to have euglycemic DKA as he is on SGLT2 inhibitor which is recognized to cause euglycemic DKA in T2DM. Patient was updated and started on DKA pathway, with insulin drip and IV D5+saline, with frequent electrolyte and renal function checks. His A1c was 11.2. His anion gap closed and bicarbonate normalized. He was able to be transitioned off the insulin drip to Levemir 5 units BID along with low dose sliding scale. Skip Pitman Dr. Luke followed the patient and cleared the patient for discharge on 03/05/2022. Patient reported previously taking long acting insulin via FlexPen. He was advised to discontinue his oral antidiabetic medications. He was advised to check his blood sugar three times a day. He was advised of hypoglycemic symptoms. He was advised to continue with his home medication. He was advised to follow up with his PCP within 2 day of discharge. He was also discharged on Lipitor for dyslipidemia. Patient verablized understanding of the plan. This discharge took approximately 45 minutes to complete. General: [non toxic], [no distress], [appears at stated age] Derm: [warm], [dry] Head: [atraumatic], [normocephalic], [symmetric] Eyes: [EOMI], [no lid lag], [anicteric sclera] Mouth: [no lip lesion], [mucus membranes moist] Cardiovascular: [S1S2 reg], [no murmur] Lungs: [CTA bilateral], [no rhonchi, no rales] , [no accessory muscle use] Abdominal: [soft], [ nontender to palpation], [no guarding], [no appreciable organomegaly] Ext: [no gross muscle atrophy], [no edema], [no contractures] Neuro: [no focal neuro deficits] Psych: [Alert], [oriented], [appropriate affect] Discharge diagnosis: #1 euglycemic DKA secondary to SCL 2 inhibitors #2 diabetes mellitus [id number] #3 hyperlipidemia Patient Condition at Discharge: Good Plan - Discharge Summary Discharge Rx Participant: No New Discharge Prescriptions: New Insulin Detemir [Levemir Flextouch Pen] 10 units SQ HS 30 Days #1 pen Atorvastatin Calcium [Lipitor] 40 mg PO HS #30 tablet Continue Mesalamine [Lialda] 4.8 gm PO DAILY Multivitamins, Thera [Multivitamin (formulary)] 1 tab PO DAILY clonazePAM [KlonoPIN] 0.5 mg PO HS Discontinued Empagliflozin/Linagliptin [Glyxambi 25 mg-5 mg Tablet] 1 tab PO DAILY Semaglutide [Rybelsus] 7 mg PO DAILY Pioglitazone [Actos] 45 mg PO DAILY Discharge Medication List Mesalamine [Lialda] 4.8 gm PO DAILY 04/17/18 [History] Multivitamins, Thera [Multivitamin (formulary)] 1 tab PO DAILY 03/02/22 [History] clonazePAM [KlonoPIN] 0.5 mg PO HS 03/02/22 [History] Atorvastatin Calcium [Lipitor] 40 mg PO HS #30 tablet 03/05/22 [Rx] Insulin Detemir [Levemir Flextouch Pen] 10 units SQ HS 30 Days #1 pen 03/05/22 [Rx] Follow up Appointment(s)/Referral(s): Gerard Ramirez MD [Primary Care Provider] - 1-2 days Patient Instructions/Handouts: Diabetic Ketoacidosis (DC) Activity/Diet/Wound Care/Special Instructions: Diet: Diabetic Follow-up with your PCP within 3 days of discharge. Back to the ED or call 911 for worsening chest pain, shortness of breath, dizziness. Discharge Disposition: HOME SELF-CARE
== END 2022-03-05 14:21 | disposition home or self-care (01) | DRG 638 ==
LOC: EC 18:44 → 3SCARD 23:01 → 2SICU 03-03 09:24
PROVIDERS: ADMIT Internal Medicine; ATTEND Internal Medicine
DX: E11.10 Type 2 diabetes mellitus with ketoacidosis without coma (principal); K51.90 Ulcerative colitis, unspecified, without complications; E11.40 Type 2 diabetes mellitus with diabetic neuropathy, unspecified; E78.5 Hyperlipidemia, unspecified; Z79.84 Long term (current) use of oral hypoglycemic drugs; Z20.822 Contact with and (suspected) exposure to COVID-19
CPT/HCPCS: 36415; 80048; 80051; 80053; 80061; 80143; 80179; 80306; 80320; 81001; 82009; 82565; 82803; 82947; 83036; 83605; 83690; 83735; 83930; 83935; 84100; 84450; 84460; 84520; 84600; 84681; 85025; 87635; 93005; 96361; 96365; 96366; 96375; 99291

== ENCOUNTER 2022-09-07 07:00 | Day surgery (SDC) | payer BC, MEDICARE ==
[2022-09-06 08:47] VITALS: BMI 32.5
[~2022-09-07 07:00] MED LIST changes: -LACTATED RINGERS 1,000 ML IV SCH; +LIDOCAINE 1% (10MG/ML) FOR IV START INTRADERMA PRN; -ONDANSETRON 4 MG/2 ML VIAL IVP PRN; -ceFAZolin IN SWFI 2 GM/20 ML SYRINGE IVP ONE
[2022-09-07] MEDS: LACTATED RINGERS 1,000 ML IV SCH ×2 (07:19→07:29)
[2022-09-07 07:25] VITALS: TEMP 96.8
[2022-09-07 07:39] LABS: Glucose,Whole Blood 100 mg/dL (70-110)
[2022-09-07] MEDS ORDERED: PROPOFOL 10 MG/ML 20 ML VIAL IV ONE (07:48)
--- NOTE | 2022-09-07 08:10 | P.PCN ---
Date of Procedure: 09/07/22 Procedure(s) Performed: BRIEF HISTORY: Patient is a 67-year-old pleasant white male scheduled for an elective colonoscopy as a part of surveillance of long-standing history of ulcerative colitis diagnosed in 1996. PROCEDURE PERFORMED: Colonoscopy with biopsies. PREOPERATIVE DIAGNOSIS: Long-standing history of ulcerative colitis. IV sedation per Anesthesia. PROCEDURE: After informed consent was obtained, the patient, was brought into the endoscopy unit. IV sedation was administered by Anesthesia under continuous monitoring. Digital rectal examination was normal. Initially the Olympus CF-160 flexible video colonoscope was then inserted in the rectum, gradually advanced into the cecum without any difficulty. Careful examination was performed as the scope was gradually being withdrawn. Ileocecal valve and the appendiceal orifice were visualized and appeared normal. Prep was excellent. Mucosa of the cecum and ileocecal valve had mild active colitis with mucosal friability and biopsies were done from this area. Mucosa of the, ascending colon, transverse colon, descending colon, appeared normal. The sigmoid colon there was a 3-4 mm polyp that was removed by cold biopsy. Scattered sigmoid diverticulosis seen. Rest of the sigmoid colon, and rectum appeared normal. Retroflexion was performed in the rectum and no lesions were seen. The patient tolerated the procedure well. IMPRESSION: 3-4 minutes; polyp status post cold biopsy Scattered sigmoidal reticulosis Mild active colitis noted on the ileocecal valve and the base of the cecum status post multiple biopsies rest of the colon appeared normal RECOMMENDATIONS: Findings of this examination were discussed with the patient as well as his family. He was advised to follow with the biopsy results. If the biopsies have no evidence of dysplasia, he can have a repeat colonoscopy in 2 years..
[2022-09-07 08:17] VITALS: RESP 16
[2022-09-07 08:24] VITALS: BP 132/82; PULSE 82
== END 2022-09-07 08:46 | disposition home or self-care (01) ==
LOC: ORWHC2ENDO 07:00
PROVIDERS: ATTEND Internal Medicine Gastroenterology
DX: Z12.11 Encounter for screening for malignant neoplasm of colon (principal); K52.9 Noninfective gastroenteritis and colitis, unspecified; K63.5 Polyp of colon; E78.5 Hyperlipidemia, unspecified; E11.9 Type 2 diabetes mellitus without complications; G47.33 Obstructive sleep apnea (adult) (pediatric); Z87.891 Personal history of nicotine dependence; Z99.89 Dependence on other enabling machines and devices; Z79.899 Other long term (current) drug therapy; Z87.19 Personal history of other diseases of the digestive system
CPT/HCPCS: 88305; 45380; J2704

== ENCOUNTER → 2023-07-12 | Outpatient (CLI) | payer MEDICARE ==
--- NOTE | 2023-07-18 10:55 | MR ---
EXAMINATION TYPE: MR knee RT wo con DATE OF EXAM: 07/12/2023 COMPARISON: 10/23/2017 HISTORY: Right knee pain and swelling TECHNIQUE: Multiplanar, multisequence imaging of the right knee is performed without IV contrast. FINDINGS: MEDIAL MENISCUS: There is extrusion of the medial meniscus with grade 3 signal compatible posterior h orn and body. LATERAL MENISCUS: Anterior and posterior horns are intact without tear. CRUCIATE LIGAMENTS: The posterior cruciate ligament is intact. Chronic appearing ACL tear\myxoid dege neration similar to prior exam. There does appear to remain fibers femoral attachment and tibial sugey chment. COLLATERAL LIGAMENTS: The stable cyst near the attachment of the lateral collateral ligament no evide nce of lateral collateral ligament tear. Popliteus tendon is intact. Findings compatible with grade 1 sprain MCL. No acute thickness tear. A small circular area of increa sed signal on T2 imaging adjacent to the lateral collateral ligament may represent a small amount of fluid in the bursa versus small cyst and stable from prior exam. EXTENSOR MECHANISM: Visualized quadriceps and patellar tendons are intact. EFFUSION: There is a [id number] patellar bursal fluid collection. POPLITEAL CYST: No popliteal/castro cyst. TRICOMPARTMENT SPACES: There is loss of the joint spaces with the complete loss of cartilage of the m edial femoral articular surface. There is large areas of marrow edema involving the medial distal fem ur and tibial plateau likely secondary to post arthritic bone reactive edema. Fibrillation and chondromalacia patellar cartilage. BONE MARROW SIGNAL: Large areas of marrow edema involving the articular portion distal femur and tibi al plateau as noted above likely reactive. Other: There is increased signal in the vastus medialis muscle suggestive of intramuscular strain. Th ere is subcutaneous edema. IMPRESSION: 1. Osteoarthritis with complete loss of articular cartilage in the medial femur. Large areas of suspe cted reactive marrow edema distal femur and tibia secondary bone on bone and severe osteoarthritis. 2. 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 3. 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 4. Moderate suprapatellar bursal fluid collection 5. Grade 1 sprain MCL and LCL. 6. Vastus medialis intramuscular strain.
== END | disposition home or self-care (01) ==
LOC: RADMRIMAIN 17:58
PROVIDERS: ATTEND Orthopaedic Surgery
DX: S83.411A Sprain of medial collateral ligament of right knee, initial encounter (principal); S83.421A Sprain of lateral collateral ligament of right knee, initial encounter; M17.11 Unilateral primary osteoarthritis, right knee; M21.161 Varus deformity, not elsewhere classified, right knee; E10.9 Type 1 diabetes mellitus without complications; M21.162 Varus deformity, not elsewhere classified, left knee; M94.261 Chondromalacia, right knee

== ENCOUNTER → 2023-09-14 | Outpatient (CLI) | payer MEDICARE ==
--- NOTE | 2023-09-16 07:38 | MR ---
EXAMINATION TYPE: MR knee LT wo con DATE OF EXAM: 09/14/2023 COMPARISON: Prior MRI left knee March 17, 2018 HISTORY: Medial pain with locking and swelling for 6 months. History of prior surgery. TECHNIQUE: Multiplanar, multisequence images of the knee is performed without IV contrast. FINDINGS: MEDIAL MENISCUS: Medial bulging medial meniscus with increased signal coronal image 21 on current adriano dy. Truncated appearance to the medial meniscus is more prominent from prior study suggesting interva l partial meniscectomy surgery. LATERAL MENISCUS: Anterior and posterior horns are intact without tear. CRUCIATE LIGAMENTS: The posterior cruciate ligaments is intact and unremarkable. There is further fra inderjit and increased signal of the anterior cruciate ligament more prominent from prior study. COLLATERAL LIGAMENTS: The medial collateral ligament and lateral collateral ligament complex are inta ct and unremarkable. EXTENSOR MECHANISM: Visualized quadriceps and patellar tendons are intact. EFFUSION: Small size suprapatellar joint effusion. POPLITEAL CYST: No popliteal/castro cyst. TRICOMPARTMENT SPACES: Moderate to severe tricompartment joint space loss and spurring CARTILAGE: Chondromalacia patella with cartilaginous loss and posterior patellar pole. Significant in cluding full-thickness cartilaginous loss medial tibiofemoral compartment on current study. BONE MARROW SIGNAL: Stable 2.0 cm lesion in the distal medial femoral condyle presumed nonaggressive probable enchondroma. There is cystic change in the lateral femoral condyle redemonstrated. There is new irregular signal involving the proximal tibial metaphysis posteriorly extending towards the condy les possible subchondral cystic change. There is new diminished T1 and increased T2 signal in the med ial tibiofemoral compartment as site of full-thickness cartilaginous loss. OTHER: No additional significant abnormality is appreciated. IMPRESSION: 1. Fairly advanced tricompartmental degenerative changes are greatest involving the medial tibiofemor al compartment and show interval progression from the 2018 MRI are noted as detailed above. 2. Further progression of partial tearing of the anterior cruciate ligament. 3. Interval medial meniscal surgery with at least intrasubstance tear in the remnant meniscus noted. 4. Stable small suprapatellar joint effusion
== END | disposition home or self-care (01) ==
LOC: RADMRIMAIN 07:33
PROVIDERS: ATTEND Orthopaedic Surgery
DX: M17.0 Bilateral primary osteoarthritis of knee (principal); M25.462 Effusion, left knee; M23.303 Other meniscus derangements, unspecified medial meniscus, right knee; E10.9 Type 1 diabetes mellitus without complications

== ENCOUNTER 2025-04-01 08:31 | Day surgery (SDC) | payer MEDICARE ==
[2025-04-01 08:57] VITALS: RESP 16; TEMP 98.1
[2025-04-01] MEDS: LIDOCAINE 1% (10MG/ML) FOR IV START INTRADERMA PRN (08:57)
[2025-04-01] MEDS: LACTATED RINGERS 1,000 ML IV SCH (08:57)
[2025-04-01] MEDS: IV FLUID CONTINUATION 1,000 ML IV ONE (08:58)
[2025-04-01 09:12] LABS: Glucose,Whole Blood 123 mg/dL (70-110)
[2025-04-01] MEDS ORDERED: PROPOFOL 10 MG/ML 20 ML VIAL IV ONE (09:31)
--- NOTE | 2025-04-01 09:48 | P.PCN ---
Date of Procedure: 04/01/25 Procedure(s) Performed: BRIEF HISTORY: Patient is a 69-year-old pleasant white male scheduled for an elective colonoscopy as a part of screening for longstanding history of ulcerative colitis diagnosed in 1996. He is not in examination. PROCEDURE PERFORMED: Colonoscopy with biopsy and snare polypectomy. PREOPERATIVE DIAGNOSIS: Screening for longstanding history of ulcerative colitis. IV sedation per Anesthesia. PROCEDURE: After informed consent was obtained, the patient, was brought into the endoscopy unit. IV sedation was administered by Anesthesia under continuous monitoring. Digital rectal examination was normal. Initially the Olympus CF-160 flexible video colonoscope was then inserted in the rectum, gradually advanced into the cecum without any difficulty. Careful examination was performed as the scope was gradually being withdrawn. Ileocecal valve and the appendiceal orifice were visualized and appeared normal. Prep was excellent. Mucosa of the cecum, ascending colon, transverse colon, had quiescent colitis. In the descending colon there was a 6 mm polyp removed by cold snare polypectomy. Rest of the descending colon, sigmoid colon, and rectum appeared normal. Scattered sigmoid diverticulosis seen. Random biopsies were done from cecum to rectum at every 10 cm intervals to rule out dysplasia retroflexion was performed in the rectum and no lesions were seen. The patient tolerated the procedure well. IMPRESSION: 6 mm descending colon polyp status post cold snare polypectomy Quiescent colitis Scattered sigmoid diverticulosis RECOMMENDATIONS: Findings of this examination were discussed with the patient as well as his family. He was advised to follow-up with the biopsy result. If the biopsy does not reveal dysplasia he can have repeat colonoscopy in 2 years.
[2025-04-01 09:57] LABS: Glucose,Whole Blood 130 mg/dL (70-110)
[2025-04-01 10:07] VITALS: BP 137/82; PULSE 70
== END 2025-04-01 10:26 | disposition home or self-care (01) ==
LOC: ORWHC2ENDO 08:31
PROVIDERS: ATTEND Internal Medicine Gastroenterology
DX: Z12.11 Encounter for screening for malignant neoplasm of colon (principal); K51.30 Ulcerative (chronic) rectosigmoiditis without complications; K63.5 Polyp of colon; K57.30 Diverticulosis of large intestine without perforation or abscess without bleeding; E11.9 Type 2 diabetes mellitus without complications; E78.5 Hyperlipidemia, unspecified; G47.33 Obstructive sleep apnea (adult) (pediatric); Z79.4 Long term (current) use of insulin; Z79.899 Other long term (current) drug therapy; Z87.891 Personal history of nicotine dependence
CPT/HCPCS: 88305; 45380; 45385; J2704